=== PATIENT | female | born 1980 | race Caucasian/White ===

== ENCOUNTER 2019-10-09 17:13 | Emergency (ER) | payer BC ==
--- OUTSIDE RECORDS SUMMARY | 2019-10-09 17:14 | XMS REPORT ---
:1980 Author Organization eClinicalWorks Care Team Providers Name Role Phone [facility] Provider Role Unavailable Allergies, Adverse Reactions, Alerts Substance Reaction Event Type N.K.D.A. Info Not Available Non Drug Allergy Problems Problem Type Condition Code Onset Dates Condition Statu s Assessment GERD without esophagitis K21.9 Act jak Assessment Panic disorder [episodic paroxysmal F41.0 Active anxiety] Assessment Generalized anxiety disorder F41.1 Active Assessment Endometriosis N80.9 Active Assessment Elevated BP without diagnosis of R03.0 Active hypertension Problem Endometriosis N80.9 Active Problem Panic disorder [episodic paroxysmal F41.0 Active anxiety] Problem Generalized anxiety disorder F41.1 Active Assessment Current moderate episode of major F32.1 Active depressive disorder without prior episode Problem GERD without esophagitis K21.9 Act jak Problem Current moderate episode of major F32.1 Active depressive disorder without prior episode Medications Medication Code Code Instructions Start End Status Dosage System Date Date Celexa ND 53363562602 40 MG Orally Jul 01, Active 1 table t Once a day 2019 HydrOXYzine HCl ND 96838857311 25 MG Orally Jul 01, Active 1 tablet every 8 hrs PRN 2019 as neede d Anxiety ND 64995759570 1-20 MG-MCG(24) Active 1 tablet Orally Once a day Nexium ND 02366869902 20 MG Orally Active 1 capsu le Once a day Results No Known Results Summary Purpose eClinicalWorks Submission
--- OUTSIDE RECORDS SUMMARY | 2019-10-09 17:15 | XMS REPORT ---
:1980 Author Organization eClinicalWorks Care Team Providers Name Role Phone Cabrera Valera Provider Role Unavailable Allergies No Known Allergies Problems Problem Type Condition Code Onset Dates Condition Statu s Problem Endometriosis N80.9 Active Problem Panic disorder [episodic paroxysmal F41.0 Active anxiety] Problem Generalized anxiety disorder F41.1 Active Problem GERD without esophagitis K21.9 Act jak Problem Current moderate episode of major F32.1 Active depressive disorder without prior episode Medications No Known Medications Results No Known Results Summary Purpose eClinicalWorks Submission
--- OUTSIDE RECORDS SUMMARY | 2019-10-09 17:15 | XMS REPORT ---
:1980 Author Organization eClinicalWorks Care Team Providers Name Role Phone Cabrera Valera Provider Role Unavailable Allergies, Adverse Reactions, Alerts Substance Reaction Event Type N.K.D.A. Info Not Available Non Drug Allergy Problems Problem Type Condition Code Onset Dates Condition Statu s Assessment Generalized anxiety disorder F41.1 Active Assessment Current moderate episode of major F32.1 Active depressive disorder without prior episode Assessment Panic disorder [episodic paroxysmal F41.0 Active anxiety] Assessment H/O: hysterectomy Z90.710 Active Assessment Endometriosis N80.9 Active Assessment Elevated BP without diagnosis of R03.0 Active hypertension Assessment GERD without esophagitis K21.9 Act jak Problem Panic disorder [episodic paroxysmal F41.0 Active anxiety] Problem GERD without esophagitis K21.9 Act jak Problem H/O: hysterectomy Z90.710 Active Problem Endometriosis N80.9 Active Problem Current moderate episode of major F32.1 Active depressive disorder without prior episode Problem Generalized anxiety disorder F41.1 Active Medications Medication Code Code Instructions Start End Status Dosage System Date Date Nexium [facility] 65463386229 20 MG Orally Active 1 capsu le Once a day [facility] 06396442347 1-20 MG-MCG(24) Active 1 tablet Orally Once a day HydrOXYzine HCl [facility] 16536408724 25 MG Orally Inactiv e 1 tablet every 8 hrs PRN as neede d Anxiety Celexa [facility] 57170523133 40 MG Orally Active 1 table t Once a day Alprazolam ND 34984627549 0.25 MG Orally August Active 1 tablet Once a day PRN 2019 SEVERE ANXIETY Results No Known Results Summary Purpose eClinicalWorks Submission
--- OUTSIDE RECORDS SUMMARY | 2019-10-09 17:15 | XMS REPORT ---
[...] anxiety disorder F41.1 Active Medications Medication Code System Code Instructions Start End Date Status Dos age Date Celexa [facility] 42021246375 40 MG Orally Active 1 table t Once a day Alprazolam [facility] 22848467918 0.25 MG Orally Active 1 tablet Once a day PRN SEVERE ANXIETY [facility] 95353489017 1-20 MG-MCG(24) Active 1 tablet Orally Once a day Nexium [facility] 63346688437 20 MG Orally Active 1 capsu le Once a day Results No Known Results Summary Purpose eClinicalWorks Submission
--- OUTSIDE RECORDS SUMMARY | 2019-10-09 17:15 | XMS REPORT | Summary of Care ---
:1980 Author Organization [facility] Address [address] [place] [address] Care Team Providers Name Role Phone Lori Suero MD Primary Care Provider Reason for Visit Reason Comments Medical Records Encounter Details Date Type Department Care Team Description 07/03/2019 Telephone [facility] Family Kamilah Suero MD Medical Records Medicine - [address] [place] [address] [place] [address] [phone] Allergies No Known Allergiesdocumented as of this encounter (statuses as of 07/03/2019) Medications Medication Sig Dispensed Refills Start Date End Date Status esomeprazole 20 mg Take 20 mg by 0 Active capsule mouth daily before a meal. Norethindrn A-E Take by mouth. 0 Active Estradiol-Iron () 1 mg-20 mcg (24)/75 mg (4) per tablet SERTraline 25 mg Take 1 tablet by 30 tablet 5 04/12/2019 Active tabletIndications: mouth daily. Anxiety STOP CITALOPRAM. triamcinolone 0.025 % Apply to 15 g 0 04/12/2019 Active creamIndications: area(s) 2 (two) Perioral dermatitis times daily. documented as of this encounter (statuses as of 07/03/2019) Active Problems Problem Noted Date Perioral dermatitis 04/28/2019 Elevated blood pressure reading without diagnosis of h ypertension 04/28/2019 Multiple thyroid nodules 03/04/2019 Chronic fatigue 03/03/2019 GERD (gastroesophageal reflux disease) 03/03/2019 B12 deficiency 02/25/2019 Overview: Relative deficiency <400 Anxiety 02/21/2019 documented as of this encounter (statuses as of 07/03/2019) Immunizations Name Administration Dates Next Due Tdap 01/27/2017 documented as of this encounter Social History Tobacco Use Types Packs/Day Years Used Date Never Smoker Smokeless Tobacco: Never Used Alcohol Use Drinks/Week oz/Week Comments Yes social Sex Assigned at Date Recorded Not on file Job Start Date Occupation Industry Not on file Not on file Not on file Travel History Travel Start Travel End No recent travel history available. documented as of this encounter Last Filed Vital Signs Not on filedocumented in this encounter Plan of Treatment Health Maintenance Due Date Last Done Comments INFLUENZA VACCINE (#1) 2020 Postponed from 01/27/2019 (Refu sed) PAP SMEAR 01/27/2022 01/27/2019, 03/25/2008 DTaP,Tdap,and Td Vaccines (2 01/27/2027 01/27/2017 - Td) PNEUMOCOCCAL 0-64 YEARS Aged Out No longe r eligible based COMBINED SERIES on patient's age to complete this to pic VARICELLA VACCINES Discontinued documented as of this encounter Results Not on filedocumented in this encounter Insurance Payer Benefit Plan Subscriber ID Effective Dates Phone Address Type / Group [facility] [id number] 2018-[place]ell [phone] [address] P[place]/POS [place] - OUT OF nt [id number] [place] [address] documented as of this encounter
[2019-10-09 18:06] LABS: Absolute Lymphocytes (CBC) 2.1 K/uL (0.7-4.9); Basophils % 0.7 % (0-1.3); Hematocrit 35.7 % (36.0-45.0); MPV 8.2 fL (7.6-11.3); RBC Red Blood Cell Count 3.96 M/uL (3.86-4.86)
[2019-10-09 18:26] LABS: Potassium 3.5 mmol/L (3.5-5.1)
[2019-10-09] MEDS ORDERED: NA CHLORIDE 0.9% 0 ML ONE (18:44)
[2019-10-09] MEDS ORDERED: NA CHLORIDE 0.9% 1,000 ML ONE ×2 (18:46→19:57)
[2019-10-09 18:49] LABS: Urine Blood NEGATIVE (NEG); Urine Glucose NEGATIVE (NEG); Urine Protein NEGATIVE (NEG); Urine Specific Gravity >1.030 (1.005-1.030)
[2019-10-09 18:49] LABS: Urine Bacteria 20-50 /HPF (<20); Urine Culture Reflex Order REFLEXED; Urine RBC <5 /HPF (NONE SEEN)
[2019-10-09] MEDS ORDERED: CEFTRIAXONE/SWI 1gm 1 GM/10 ML SYR ONE (19:04)
[2019-10-09] MEDS ORDERED: ACETAMINOPHEN 500 MG TAB ONE (19:57)
--- NOTE | 2019-10-09 21:18 | EDPHYS ---
Physician Documentation [facility] Name: Brii Yo Age: 39 yrs Sex: Female : 1980 Arrival Date: 10/09/2019 Time: 17:19 Bed 16 Private MD: ED Physician Radha Mancera HPI: 10/08 17:54 This 39 yrs old Female presents to ER via Ambulatory with complaints of snw dehydration. 17:54 Onset: The symptoms/episode began/occurred suddenly, 3 day(s) ago, and became snw persistent. Associated signs and symptoms: Pertinent positives: severe muscle pain, soreness. Modifying factors: The patient symptoms are alleviated by nothing. The patient has not experienced similar symptoms in the past. It is unknown whether or not the patient has recently seen a physician. Worked out really hard after not working out for a while. 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 - Social history:: Smoking status: Patient denies any tobacco usage or history of. ROS: 17:52 Constitutional: Negative for fever, chills, and weight loss, Eyes: Negative for injury, snw pain, redness, and discharge, ENT: Negative for injury, pain, and discharge, Neck: Negative for injury, pain, and swelling, Cardiovascular: Negative for chest pain, palpitations, and edema, Respiratory: Negative for shortness of breath, cough, wheezing, and pleuritic chest pain, Abdomen/GI: Negative for abdominal pain, nausea, vomiting, diarrhea, and constipation, Back: Negative for injury and pain, : Negative for injury, bleeding, discharge, and swelling, Skin: Negative for injury, rash, and discoloration, Neuro: Negative for headache, weakness, numbness, tingling, and seizure, Psych: Negative for depression, anxiety, suicide ideation, homicidal ideation, and hallucinations. 17:52 MS/extremity: Positive for excessive workout. Exam: 17:51 Constitutional: This is a well developed, well nourished patient who is awake, alert, snw and in no acute distress. Head/Face: Normocephalic, atraumatic. Eyes: Pupils equal round and reactive to light, extra-ocular motions intact. Lids and lashes normal. Conjunctiva and sclera are non-icteric and not injected. Cornea within normal limits. Periorbital areas with no swelling, redness, or edema. ENT: Nares patent. No nasal discharge, no septal abnormalities noted. Tympanic membranes are normal and external auditory canals are clear. Oropharynx with no redness, swelling, or masses, exudates, or evidence of obstruction, uvula midline. Mucous membranes moist. Neck: Trachea midline, no thyromegaly or masses palpated, and no cervical lymphadenopathy. Supple, full range of motion without nuchal rigidity, or vertebral point tenderness. No Meningismus. Chest/axilla: Normal chest wall appearance and motion. Nontender with no deformity. No lesions are appreciated. Cardiovascular: Regular rate and rhythm with a normal S1 and S2. No gallops, murmurs, or rubs. Normal PMI, no JVD. No pulse deficits. Respiratory: Lungs have equal breath sounds bilaterally, clear to auscultation and percussion. No rales, rhonchi or wheezes noted. No increased work of breathing, no retractions or nasal flaring. Abdomen/GI: Soft, non-tender, with normal bowel sounds. No distension or tympany. No guarding or rebound. No evidence of tenderness throughout. Back: No spinal tenderness. No costovertebral tenderness. Full range of motion. Skin: Warm, dry with normal turgor. Normal color with no rashes, no lesions, and no evidence of cellulitis. Neuro: Awake and alert, GCS 15, oriented to person, place, time, and situation. Cranial nerves II-XII grossly intact. Motor strength 5/5 in all extremities. Sensory grossly intact. Cerebellar exam normal. Normal gait. Psych: Awake, alert, with orientation to person, place and time. Behavior, mood, and affect are within normal limits. 17:51 Musculoskeletal/extremity: Extremities: severe tenderness with movement, unable to bear weight in squat., Circulation is intact in all extremities. Sensation intact. Vital Signs: 17:26 BP 150 / 103; Pulse 59; Resp 18; Temp 98.7; Pulse Ox 99% on R/A; Weight 90.72 kg; em Height 5 ft. 9 in. (175.26 cm); Pain 6/10; 18:00 BP 134 / 80; Pulse 52; Resp 18; Pulse Ox 100% on R/A; vc 19:00 BP 142 / 98; Pulse 62; Resp 17; Pulse Ox 98% on R/A; vc 20:00 BP 132 / 92; Pulse 44; Resp 17; Pulse Ox 98% on R/A; vc 21:00 BP 135 / 84; Pulse 49; Resp 18; Pulse Ox 100% on R/A; vc 17:26 Body Mass Index 29.53 (90.72 kg, 175.26 cm) em MDM: 17:33 Patient medically screened. snw 21:18 Data reviewed: vital signs, nurses notes. Data interpreted: Pulse oximetry: on room air snw is 99 %. Interpretation: normal. Counseling: I had a detailed discussion with the patient and/or guardian regarding: the historical points, exam findings, and any diagnostic results supporting the discharge/admit diagnosis, lab results, the need for outpatient follow up, to return to the emergency department if symptoms worsen or persist or if there are any questions or concerns that arise at home. Special discussion: I have referred the patient to see his PCP for further evaluation of high blood pressure. Based on the history and exam findings, there is no indication for further emergent testing or inpatient evaluation. I discussed with the patient/guardian the need to see the primary care provider for further evaluation of the symptoms. 10/08 17:39 Order name: CBC with Diff; Complete Time: 18:23 snw 10/08 17:39 Order name: Chem 7; Complete Time: 18:44 snw 10/08 17:39 Order name: CPK; Complete Time: 18:44 snw 10/08 17:39 Order name: Urine Microscopic Only; Complete Time: 18:52 snw 10/08 18:10 Order name: Urine Dipstick--Ancillary (enter results) bd 10/08 18:10 Order name: Urine --Ancillary (enter results) bd 10/08 17:39 Order name: Urine Test (obtain specimen); Complete Time: 18:09 snw 10/08 18:10 Order name: Urine Dipstick-Ancillary; Complete Time: 18:52 [facility] 10/08 18:10 Order name: Urine --Ancillary; Complete Time: 18:52 [facility] 10/08 18:50 Order name: Urine Culture [facility] 10/08 17:39 Order name: Urine Dipstick-Ancillary (obtain specimen); Complete Time: 18:09 snw Administered Medications: 18:43 Drug: NS 0.9% 1000 ml Route: IV; Rate: 1 bolus; Site: left antecubital; ah 10/09 02:44 Follow up: IV Status: Completed infusion; IV Intake: 1000ml vc 10/08 19:00 Drug: Rocephin 1 grams Route: IV; Rate: calculated rate; Site: left antecubital; em 19:05 Follow up: IV Status: Completed infusion; IV Intake: 10ml vc 20:14 Drug: NS 0.9% 1000 ml Route: IV; Rate: 1 bolus; Site: left antecubital; vc 21:19 Follow up: IV Status: Completed infusion; IV Intake: 1000ml vc 20:17 Drug: Tylenol 1000 mg Route: PO; vc 21:20 Follow up: Response: No adverse reaction vc Point of Care Testing: Urine : 18:08 hCG Reading: Negative; Control Reading: Positive; jp3 Disposition: 10/09/19 21:17 Discharged to Home. Impression: Urinary tract infection, site not specified, Rhabdomyolysis. - Condition is Stable. - Discharge Instructions: Hypertension, Rhabdomyolysis, Urinary Tract Infection, Adult, Rehydration, Adult. - Prescriptions for Augmentin 875- 125 mg Oral Tablet - take 1 tablet by ORAL route every 12 hours for 10 days; 20 tablet. promethazine 25 mg Oral Tablet - take 1 tablet by ORAL route every 6 hours As needed; 20 tablet. - Medication Reconciliation Form, Thank You Letter, Antibiotic Education, Prescription Opioid Use form. - Follow up: Emergency Department; When: As needed; Reason: Worsening of condition. Follow up: Private Physician; When: 2 - 3 days; Reason: Recheck today's complaints, Continuance of care, Re-evaluation by your physician. Addendum: 10/11/2019 18:19 Co-signature as Attending Physician, Radha Mancera MD. m a2 Signatures: Dispatcher [employer] [facility] Ghislaine Stevens, MARIAA PENCIL INSPECTOR-Csnw Hayden Santa RN RN Radha Palm MD MD ma2 Jenniffer Mulligan RN RN vc Harris, Amy RN RN Corrections: (The following items were deleted from the chart) 10/08 21:32 21:17 10/09/2019 21:17 Discharged to Home. Impression: Urinary tract infection, site vc not specified; Rhabdomyolysis. Condition is Stable. Discharge Instructions: Hypertension, Rhabdomyolysis, Urinary Tract Infection, Adult, Rehydration, Adult. Prescriptions for Augmentin 875-125 mg Oral Tablet - take 1 tablet by ORAL route every 12 hours for 10 days; 20 tablet, promethazine 25 mg Oral Tablet - take 1 tablet by ORAL route every 6 hours As needed; 20 tablet. and Forms are Medication Reconciliation Form, Thank You Letter, Antibiotic Education, Prescription Opioid Use. Follow up: Emergency Department; When: As needed; Reason: Worsening of condition. Follow up: Private Physician; When: 2 - 3 days; Reason: Recheck today's complaints, Continuance of care, Re-evaluation by your physician. snw
--- NOTE | 2019-10-09 21:18 | ER ---
Nurse's Notes [facility] Name: Brii Yo Age: 39 yrs Sex: Female : 1980 Arrival Date: 10/09/2019 Time: 17:19 Bed 16 Private MD: Diagnosis: Urinary tract infection, site not specified;Rhabdomyolysis Presentation: 10/08 17:26 Chief complaint: Patient states: worked out for the first time in a while, reports em being sore from it, also reports dehydration and dark urine, had nausea this morning, has drank some water and gatorade, wants to get checked out for rhabdo. Coronavirus screen: Proceed with normal triage. Patient denies a cough. Patient denies shortness of breath or difficulty breathing. Patient denies measured and/or subjective temperature greater than 100.4F prior to today's visit. Patient denies travel on a cruise ship or to a country the [facility] currently lists as an affected area. Patient denies contact with known and/or suspected case of COVID-19. Ebola Screen: Patient negative for fever greater than or equal to 101.5 degrees Fahrenheit, and additional compatible Ebola Virus Disease symptoms Patient denies exposure to infectious person. Patient denies travel to an Ebola-affected area in the 21 days before illness onset. No symptoms or risks identified at this time. Initial Sepsis Screen: Does the patient meet any 2 criteria? No. Patient's initial sepsis screen is negative. Does the patient have a suspected source of infection? No. Patient's initial sepsis screen is negative. Risk Assessment: Do you want to hurt yourself or someone else? Patient reports no desire to harm self or others. Onset of symptoms was October 09, 2019. 17:26 Method Of Arrival: Ambulatory em 17:26 Acuity: CLARIBEL 3 em Triage Assessment: 18:00 General: Appears in no apparent distress. Behavior is calm, cooperative. Pain: vc Complains of pain in right leg and left leg. HUC: 17:32 LMP N/A - Hysterectomy em Historical: - Allergies: 17:32 No Known Allergies; em - Home Meds: 17:32 Xanax Oral [Active]; Nexium Oral [Active]; em - PMHx: 17:32 GERD; Anxiety; em - PSHx: 17:32 Hysterectomy; gastric sleeve; breast augmentation; abd sx; em - Immunization history:: Adult Immunizations up to date. - Social history:: Smoking status: Patient denies any tobacco usage or history of. Screenin:00 Abuse screen: Denies threats or abuse. Nutritional screening: No deficits noted. vc Tuberculosis screening: No symptoms or risk factors identified. Fall Risk None identified. Assessment: 18:00 General: Appears in no apparent distress. uncomfortable, ill, Behavior is calm, vc cooperative, appropriate for age. Pain: Complains of pain in Generalized pain. Neuro: Level of Consciousness is awake, alert, obeys commands, Oriented to person, place, time, situation. Cardiovascular: Capillary refill < 3 seconds Patient's skin is warm and dry. Respiratory: Airway is patent Respiratory effort is even, unlabored, Respiratory pattern is regular, symmetrical. GI: No signs and/or symptoms were reported involving the gastrointestinal system. : No signs and/or symptoms were reported regarding the genitourinary system. EENT: No signs and/or symptoms were reported regarding the EENT system. Derm: No signs and/or symptoms reported regarding the dermatologic system. Musculoskeletal: Circulation, motion, and sensation intact. Range of motion: intact in all extremities. 19:00 Reassessment: Patient appears in no apparent distress at this time. Patient and/or vc family updated on plan of care and expected duration. Pain level reassessed. Patient is alert, oriented x 3, equal unlabored respirations, skin warm/dry/pink. 20:00 Reassessment: Patient appears in no apparent distress at this time. Patient and/or vc family updated on plan of care and expected duration. Pain level reassessed. Patient is alert, oriented x 3, equal unlabored respirations, skin warm/dry/pink. 21:00 Reassessment: Patient appears in no apparent distress at this time. Patient and/or vc family updated on plan of care and expected duration. Pain level reassessed. Patient is alert, oriented x 3, equal unlabored respirations, skin warm/dry/pink. Patient states symptoms have improved. Vital Signs: 17:26 BP 150 / 103; Pulse 59; Resp 18; Temp 98.7; Pulse Ox 99% on R/A; Weight 90.72 kg; em Height 5 ft. 9 in. (175.26 cm); Pain 6/10; 18:00 BP 134 / 80; Pulse 52; Resp 18; Pulse Ox 100% on R/A; vc 19:00 BP 142 / 98; Pulse 62; Resp 17; Pulse Ox 98% on R/A; vc 20:00 BP 132 / 92; Pulse 44; Resp 17; Pulse Ox 98% on R/A; vc 21:00 BP 135 / 84; Pulse 49; Resp 18; Pulse Ox 100% on R/A; vc 17:26 Body Mass Index 29.53 (90.72 kg, 175.26 cm) em ED Course: 17:19 Patient arrived in ED. am2 17:25 Ghislaine Stevens [facility]-C [facility]. snw 17:25 Radha Mancera MD is Attending Physician. snw 17:30 Triage completed. em 17:32 Arm band placed on. em 17:46 Jenniffer Mulligan, CINTHIA is Primary Nurse. vc 17:55 Bed in low position. Call light in reach. Side rails up X 1. Verbal reassurance given. jp3 Pulse ox on. NIBP on. 17:55 Initial lab(s) drawn, by me, sent to lab. Inserted saline lock: 20 gauge in left jp3 antecubital area, using aseptic technique. Blood collected. Patient maintains SpO2 saturation greater than 95% on room air. 18:08 Urine collected: clean catch specimen, clear, beatris colored. jp3 19:25 Urine --Ancillary (enter results) Sent. jp3 19:25 Urine Dipstick--Ancillary (enter results) Sent. jp3 21:28 Removal of peripheral IV. Catheter intact, dressing applied. jp3 21:30 No provider procedures requiring assistance completed. IV discontinued, intact, vc bleeding controlled, No redness/swelling at site. Pressure dressing applied. Administered Medications: 18:43 Drug: NS 0.9% 1000 ml Route: IV; Rate: 1 bolus; Site: left antecubital; 10/09 02:44 Follow up: IV Status: Completed infusion; IV Intake: 1000ml vc 10/08 19:00 Drug: Rocephin 1 grams Route: IV; Rate: calculated rate; Site: left antecubital; 19:05 Follow up: IV Status: Completed infusion; IV Intake: 10ml vc 20:14 Drug: NS 0.9% 1000 ml Route: IV; Rate: 1 bolus; Site: left antecubital; vc 21:19 Follow up: IV Status: Completed infusion; IV Intake: 1000ml vc 20:17 Drug: Tylenol 1000 mg Route: PO; vc 21:20 Follow up: Response: No adverse reaction vc Point of Care Testing: Urine : 18:08 hCG Reading: Negative; Control Reading: Positive; jp3 Intake: 19:05 IV: 10ml; Total: 10ml. vc 21:19 IV: 1000ml; Total: 1010ml. vc 10/09 02:44 IV: 1000ml; Total: 2010ml. vc Outcome: 10/08 21:17 Discharge ordered by MD. villareal 21:30 Discharged to home ambulatory. vc 21:30 Condition: improved 21:30 Discharge instructions given to patient, Instructed on discharge instructions, follow up and referral plans. medication usage, Demonstrated understanding of instructions, follow-up care, medications, Prescriptions given X 2. 21:32 Patient left the ED. vc Signatures: Ghislaine Stevens, RAW MATERIAL PLANNER-C RAW MATERIAL PLANNER-Csnw Hayden Santa, Carin Dumas RN, Jacob jp3 Jenniffer Mulligan RN RN vc Harris, Amy, RN RN
[2019-10-09 21:36] VITALS: TEMP 98.7
[2019-10-09 21:41] VITALS: BP 135/84; O2SAT 100
== END 2019-10-09 21:32 | disposition home or self-care (01) ==
LOC: ER 17:13
DX: M62.82 Rhabdomyolysis (principal); N39.0 Urinary tract infection, site not specified; F41.9 Anxiety disorder, unspecified; Z98.82 Breast implant status
CPT/HCPCS: 96361; 87088; 85025; 87086; 80048; 36415; 82550; 81025; 96374; 99284; J0696; J7030 ×2; 81003; 81015

== ENCOUNTER 2020-10-03 08:50 | Emergency (ER) | payer BC ==
[2020-10-03] MEDS ORDERED: ONDANSETRON 4 MG/2 ML VIAL ONE (09:26)
[2020-10-03] MEDS ORDERED: NA CHLORIDE 0.9% 1,000 ML ONE (09:26)
[2020-10-03] MEDS ORDERED: MORPHINE 4 MG/ML SYR ONE (09:26)
[2020-10-03] MEDS ORDERED: PIPER/TAZO/NS 3.375gm 3.375 GM/100 ML BAG ONE (09:26)
[2020-10-03 09:28] LABS: Absolute Lymphocytes (CBC) 1.2 K/uL (0.7-4.9); Basophils % 0.5 % (0-1.3); Hematocrit 37.1 % (36.0-45.0); Lymphocytes % 15.1 % (15.3-44.8); MPV 7.9 fL (7.6-11.3); RBC Red Blood Cell Count 4.14 M/uL (3.86-4.86)
[2020-10-03] MEDS ORDERED: MORPHINE 2 MG/ML SYR ONE (09:29)
[2020-10-03 09:37] LABS: ALT/SGPT 23 U/L (12-78); AST/SGOT 18 U/L (15-37); Albumin 3.5 g/dL (3.4-5.0); Alkaline Phosphatase 83 U/L (45-117); BUN Blood Urea Nitrogen 12 mg/dL (7-18); Bicarbonate 28 mmol/L (21-32); Bilirubin Direct 0.1 mg/dL (0-0.2); Bilirubin Total 0.3 mg/dL (0.2-1.0); Glucose Level 93 mg/dL (74-106); Potassium 3.7 mmol/L (3.5-5.1); Protein, Total 7.5 g/dL (6.4-8.2); Sodium Level 138 mmol/L (136-145)
[2020-10-03 09:38] LABS: Lipase 82 U/L (73-393)
--- NOTE | 2020-10-03 09:53 | RAD REPORT ---
EXAM DESCRIPTION: RAD - Chest Single View - 10/03/2020 9:21 am CLINICAL HISTORY: ABDOMINAL DISTENTION Chest pain. COMPARISON: No comparisons FINDINGS: Portable technique limits examination quality. The lungs are grossly clear. The heart is normal in size. No displaced fractures. IMPRESSION: No acute intrathoracic process suspected.
--- NOTE | 2020-10-03 09:56 | RAD REPORT ---
EXAM DESCRIPTION: CTAbdomen Pelvis W Contrast - 10/03/2020 9:37 am CLINICAL HISTORY: Abdominal pain. ABD PAIN COMPARISON: No comparisons TECHNIQUE: Biphasic CT imaging of the abdomen and pelvis was performed with 100 ml non-ionic IV cont rast. All CT scans are performed using dose optimization technique as appropriate and may include automated exposure control or mA/KV adjustment according to patient size. FINDINGS: The lung bases are clear.Postsurgical changes are present about the stomach. The liver, spleen, pancreas, adrenal glands and kidneys are within normal limits. No bowel obstruction, free air, abdominal free fluid or abscess. Sigmoid diverticulosis is present. T race pelvic free fluid. The appendix is normal. No evidence of significant lymphadenopathy. No suspicious bony findings. IMPRESSION: Mild sigmoid diverticulosis present with trace pelvic. No acute diverticulitis findings.
--- NOTE | 2020-10-03 10:23 | ER ---
Nurse's Notes [facility] Name: Brii Yo Age: 40 yrs Sex: Female : 1980 Arrival Date: 10/03/2020 Time: 08:53 Bed 6 Private MD: Diagnosis: Diverticular disease of intestine;Diverticulosis of large intestine without perforation or abscess without bleeding;Abdominal tenderness Presentation: 10/03 09:04 Chief complaint: Patient states: lower abd pain described as sharp, shooting with ss tenderness that began yesterday evening. Coronavirus screen: Client denies travel out of the [place] in the last 14 days. Ebola Screen: Patient denies exposure to infectious person. Patient denies travel to an Ebola-affected area in the 21 days before illness onset. Initial Sepsis Screen: Does the patient meet any 2 criteria? No. Patient's initial sepsis screen is negative. Does the patient have a suspected source of infection? No. Patient's initial sepsis screen is negative. Risk Assessment: Do you want to hurt yourself or someone else? Patient reports no desire to harm self or others. Onset of symptoms was October 02, 2020. 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 - Social history:: Smoking status: Patient denies any tobacco usage or history of. - Family history:: not pertinent. Screenin:03 Abuse screen: Denies threats or abuse. Denies injuries from another. Nutritional sv screening: No deficits noted. Tuberculosis screening: No symptoms or risk factors identified. Fall Risk None identified. Assessment: 09:20 General: Appears in no apparent distress. uncomfortable, well groomed, well developed, sv well nourished, Behavior is calm, cooperative, appropriate for age. Pain: Complains of pain in left lower quadrant and right lower quadrant Pain currently is 7 out of 10 on a pain scale. Pain began this morning Is continuous. Neuro: Level of Consciousness is awake, alert, obeys commands, Oriented to person, place, time, situation, Moves all extremities. Full function Gait is steady. Cardiovascular: Patient's skin is warm and dry. Respiratory: Airway is patent Respiratory effort is even, unlabored, Respiratory pattern is regular, symmetrical. GI: Abdomen is flat, Abd is soft X 4 quads Abdomen is tender to palpation in right lower quadrant and left lower quadrant. Derm: Skin is intact, Skin is pink, warm \T\ dry. Musculoskeletal: Range of motion: intact in all extremities. 10:30 Reassessment: Patient appears in no apparent distress at this time. Patient and/or sv family updated on plan of care and expected duration. Pain level reassessed. Patient is alert, oriented x 3, equal unlabored respirations, skin warm/dry/pink. 11:11 Reassessment: Patient appears in no apparent distress at this time. Patient and/or sv family updated on plan of care and expected duration. Pain level reassessed. Patient is alert, oriented x 3, equal unlabored respirations, skin warm/dry/pink. Vital Signs: 09:04 BP 139 / 93; Pulse 80; Resp 16; Temp 97.1(TE); Pulse Ox 99% on R/A; Weight 90.72 kg; ss Height 5 ft. 9 in. (175.26 cm); Pain 7/10; 09:45 BP 115 / 83; Pulse 63; Resp 16; Pulse Ox 99% ; sv 11:00 BP 120 / 77; Pulse 66; Resp 16; Pulse Ox 99% ; sv 09:04 Body Mass Index 29.53 (90.72 kg, 175.26 cm) ED Course: 08:53 Patient arrived in ED. ds1 08:56 Frederick Singleton MD is Attending Physician. ash 09:02 Makenna De Santiago RN is Primary Nurse. sv 09:03 Arm band placed on Patient placed in an exam room, on a stretcher. sv 09:03 Patient has correct armband on for positive identification. Placed in gown. Bed in low sv position. Call light in reach. Pulse ox on. NIBP on. Door closed. Warm blanket given. Head of bed elevated. 09:05 Triage completed. ss 09:20 Inserted saline lock: 20 gauge in right antecubital area, using aseptic technique. sv Blood collected. Flushed right antecubital with 5 ml normal saline. 09:21 Chest Single View XRAY In Process Unspecified. EDMS 09:37 CT Abd/Pelvis - IV Contrast Only In Process Unspecified. EDMS 10:23 Reggie Peng MD is Referral Physician. ash 11:14 No provider procedures requiring assistance completed. IV discontinued, intact, sv bleeding controlled, No redness/swelling at site. Pressure dressing applied. Administered Medications: 09:20 Drug: Zofran (Ondansetron) 4 mg Route: IVP; Site: right antecubital; sv 10:42 Follow up: Response: No adverse reaction sv 09:20 Drug: NS 0.9% 1000 ml Route: IV; Rate: 1 bolus; Site: right antecubital; sv 11:00 Follow up: Response: No adverse reaction; IV Status: Completed infusion; IV Intake: sv 1000ml 09:22 Drug: morphine 2 mg {Note: rass1.} Route: IVP; Site: right antecubital; sv 10:42 Follow up: Response: No adverse reaction; Pain is decreased; RASS: Alert and Calm (0) sv 09:45 Drug: Zosyn (piperacillin-tazobactam) 3.375 grams Route: IVPB; Infused Over: 60 mins; sv Site: right antecubital; 11:00 Follow up: Response: No adverse reaction; IV Status: Completed infusion; IV Intake: sv 100ml 10:30 Drug: TORadol (ketorolac) 30 mg Route: IVP; Site: right antecubital; sv 11:00 Follow up: Response: No adverse reaction sv Intake: 11:00 IV: 100ml; Total: 100ml. sv 11:00 IV: 1000ml; Total: 1100ml. sv Outcome: 10:23 Discharge ordered by . ash 11:14 Patient left the ED. sv 11:14 Discharged to home ambulatory. sv 11:14 Condition: stable 11:14 Discharge instructions given to patient, Instructed on discharge instructions, follow up and referral plans. medication usage, Demonstrated understanding of instructions, follow-up care, medications, Prescriptions given X 4. Signatures: Dispatcher [employer] Makenna Capellan, Frederick Aden RN, MD MD cha Sanford, Demi dsAle Juarez, CINTHIA VICENTE ss
--- NOTE | 2020-10-03 10:23 | EDPHYS ---
Physician Documentation [facility] Name: Brii Yo Age: 40 yrs Sex: Female : 1980 Arrival Date: 10/03/2020 Time: 08:53 Bed 6 Private MD: MAXIMO Physician Frederick Singleton HPI: 10/03 09:20 This 40 yrs old Female presents to ER via Ambulatory with complaints of ash Abdominal Pain. 09:20 The patient presents with abdominal pain in the lower abdomen. Onset: The ash symptoms/episode began/occurred 1 day(s) ago. The symptoms do not radiate. Associated signs and symptoms: Pertinent positives: nausea. The symptoms are described as crampy. Modifying factors: The symptoms are alleviated by remaining still, the symptoms are aggravated by movement, pressure, touching the area. Severity of pain: At its worst the pain was moderate in the emergency department the pain is unchanged. The patient has not experienced similar symptoms in the past. 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 - Social history:: Smoking status: Patient denies any tobacco usage or history of. - Family history:: not pertinent. ROS: 09:20 Constitutional: Negative for fever, chills, and weight loss, Eyes: Negative for injury, ash pain, redness, and discharge, ENT: Negative for injury, pain, and discharge, Neck: Negative for injury, pain, and swelling, Cardiovascular: Negative for chest pain, palpitations, and edema, Respiratory: Negative for shortness of breath, cough, wheezing, and pleuritic chest pain, Back: Negative for injury and pain, : Negative for injury, bleeding, discharge, and swelling, MS/Extremity: Negative for injury and deformity, Skin: Negative for injury, rash, and discoloration, Neuro: Negative for headache, weakness, numbness, tingling, and seizure, Psych: Negative for depression, anxiety, suicide ideation, homicidal ideation, and hallucinations, Allergy/Immunology: Negative for hives, rash, and allergies, Endocrine: Negative for neck swelling, polydipsia, polyuria, polyphagia, and marked weight changes, Hematologic/Lymphatic: Negative for swollen nodes, abnormal bleeding, and unusual bruising. 09:20 Abdomen/GI: Positive for abdominal pain, of the right lower quadrant and left lower quadrant. Exam: 09:20 Constitutional: This is a well developed, well nourished patient who is awake, alert, ash and in no acute distress. Head/Face: Normocephalic, atraumatic. Eyes: Pupils equal round and reactive to light, extra-ocular motions intact. Lids and lashes normal. Conjunctiva and sclera are non-icteric and not injected. Cornea within normal limits. Periorbital areas with no swelling, redness, or edema. ENT: Nares patent. No nasal discharge, no septal abnormalities noted. Tympanic membranes are normal and external auditory canals are clear. Oropharynx with no redness, swelling, or masses, exudates, or evidence of obstruction, uvula midline. Mucous membranes moist. Neck: Trachea midline, no thyromegaly or masses palpated, and no cervical lymphadenopathy. Supple, full range of motion without nuchal rigidity, or vertebral point tenderness. No Meningismus. Chest/axilla: Normal chest wall appearance and motion. Nontender with no deformity. No lesions are appreciated. Cardiovascular: Regular rate and rhythm with a normal S1 and S2. No gallops, murmurs, or rubs. Normal PMI, no JVD. No pulse deficits. Respiratory: Lungs have equal breath sounds bilaterally, clear to auscultation and percussion. No rales, rhonchi or wheezes noted. No increased work of breathing, no retractions or nasal flaring. Back: No spinal tenderness. No costovertebral tenderness. Full range of motion. Female : Normal external genitalia. Skin: Warm, dry with normal turgor. Normal color with no rashes, no lesions, and no evidence of cellulitis. MS/ Extremity: Pulses equal, no cyanosis. Neurovascular intact. Full, normal range of motion. Neuro: Awake and alert, GCS 15, oriented to person, place, time, and situation. Cranial nerves II-XII grossly intact. Motor strength 5/5 in all extremities. Sensory grossly intact. Cerebellar exam normal. Normal gait. Psych: Awake, alert, with orientation to person, place and time. Behavior, mood, and affect are within normal limits. 09:20 Abdomen/GI: Inspection: abdomen appears normal, Bowel sounds: normal, Palpation: moderate abdominal tenderness, in the right lower quadrant and left lower quadrant, Liver: no appreciated palpable abnormalities, Hernia: not appreciated. Vital Signs: 09:04 BP 139 / 93; Pulse 80; Resp 16; Temp 97.1(TE); Pulse Ox 99% on R/A; Weight 90.72 kg; ss Height 5 ft. 9 in. (175.26 cm); Pain 7/10; 09:45 BP 115 / 83; Pulse 63; Resp 16; Pulse Ox 99% ; sv 11:00 BP 120 / 77; Pulse 66; Resp 16; Pulse Ox 99% ; sv 09:04 Body Mass Index 29.53 (90.72 kg, 175.26 cm) ss MDM: 08:57 Patient medically screened. sah 09:23 Differential diagnosis: appendicitis, cholecystitis, Cholelithiasis, diverticulitis, ash Irritable bowel syndrome, non-specific abd pain, Ovarian Torsion, pancreatitis, Peptic Ulcer Disease, urinary tract infection. Data reviewed: vital signs, nurses notes, lab test result(s), radiologic studies, CT scan, plain films. Data interpreted: quality assurance monitor: rate is 97 beats/min, rhythm is regular, Pulse oximetry: on room air is 99 %. Test interpretation: by ED physician or midlevel provider: plain radiologic studies. Counseling: I had a detailed discussion with the patient and/or guardian regarding: the historical points, exam findings, and any diagnostic results supporting the discharge/admit diagnosis, lab results, radiology results. 10/03 09:03 Order name: Basic Metabolic Panel; Complete Time: 10:17 ash 10/03 09:03 Order name: CBC with Diff; Complete Time: 10:17 ash 10/03 09:03 Order name: Hepatic Function; Complete Time: 10:17 ash 10/03 09:03 Order name: Lipase; Complete Time: 10:17 ash 10/03 10:31 Order name: CREATININE WHOLE BLOOD EDVT 10/03 09:03 Order name: IV Saline Lock; Complete Time: 09:24 [facility] 10/03 09:03 Order name: CT Abd/Pelvis - IV Contrast Only; Complete Time: 10:17 [facility] 10/03 09:03 Order name: Chest Single View XRAY; Complete Time: 10:17 [facility] 10/03 09:03 Order name: Labs collected and sent; Complete Time: 09:28 [facility] 10/03 09:03 Order name: Urine Dipstick-Ancillary (obtain specimen); Complete Time: 09:24 [facility] Administered Medications: 09:20 Drug: Zofran (Ondansetron) 4 mg Route: IVP; Site: right antecubital; sv 10:42 Follow up: Response: No adverse reaction sv 09:20 Drug: NS 0.9% 1000 ml Route: IV; Rate: 1 bolus; Site: right antecubital; sv 11:00 Follow up: Response: No adverse reaction; IV Status: Completed infusion; IV Intake: sv 1000ml 09:22 Drug: morphine 2 mg {Note: rass1.} Route: IVP; Site: right antecubital; sv 10:42 Follow up: Response: No adverse reaction; Pain is decreased; RASS: Alert and Calm (0) sv 09:45 Drug: Zosyn (piperacillin-tazobactam) 3.375 grams Route: IVPB; Infused Over: 60 mins; sv Site: right antecubital; 11:00 Follow up: Response: No adverse reaction; IV Status: Completed infusion; IV Intake: sv 100ml 10:30 Drug: TORadol (ketorolac) 30 mg Route: IVP; Site: right antecubital; sv 11:00 Follow up: Response: No adverse reaction sv Disposition: 10/03/20 10:23 Discharged to Home. Impression: Diverticular disease of intestine, Diverticulosis of large intestine without perforation or abscess without bleeding, Abdominal tenderness. - Condition is Stable. - Discharge Instructions: High-Fiber Diet, Abdominal Pain, Adult, Diverticulosis, Abdominal Pain, Adult, [id number]. - Prescriptions for Bentyl 20 mg Oral Tablet - take 1 tablet by ORAL route every 6 hours As needed; 20 tablet. Flagyl 500 mg Oral Tablet - take 1 tablet by ORAL route every 8 hours for 7 days; 21 tablet. Ibuprofen 600 mg Oral Tablet - take 1 tablet by ORAL route every 8 hours As needed take with food; 21 tablet. Cipro 500 mg Oral Tablet - take 1 tablet by ORAL route every 12 hours for 7 days; 14 tablet. - Work release form, Medication Reconciliation Form, Thank You Letter, Antibiotic Education, Prescription Opioid Use form. - Follow up: Private Physician; When: 2 - 3 days; Reason: Recheck today's complaints, Continuance of care, Re-evaluation by your physician. Follow up: Reggie Peng MD; When: 2 - 3 days; Reason: Recheck today's complaints, Continuance of care, Re-evaluation by your physician. - Problem is new. - Symptoms have improved. Signatures: Dispatcher [employer] Makenna Capellan RN RN Frederick Sanford MD MD cha Smirch, Shelby, RN RN ss Corrections: (The following items were deleted from the chart) 11:14 10:23 10/03/2020 10:23 Discharged to Home. Impression: Diverticular disease of sv intestine; Diverticulosis of large intestine without perforation or abscess without bleeding; Abdominal tenderness. Condition is Stable. Forms are Work release form, Medication Reconciliation Form, Thank You Letter, Antibiotic Education, Prescription Opioid Use. Follow up: Private Physician; When: 2 - 3 days; Reason: Recheck today's complaints, Continuance of care, Re-evaluation by your physician. Follow up: Reggie Peng; When: 2 - 3 days; Reason: Recheck today's complaints, Continuance of care, Re-evaluation by your physician. Problem is new. Symptoms have improved. ash
[2020-10-03] MEDS ORDERED: KETOROLAC 30 MG/ML INJ ONE (10:48)
[2020-10-03 11:29] VITALS: TEMP 97.1; O2SAT 99
[2020-10-03 11:38] VITALS: BP 115/83
== END 2020-10-03 11:14 | disposition home or self-care (01) ==
LOC: ER 08:50
DX: K57.30 Diverticulosis of large intestine without perforation or abscess without bleeding (principal); R10.819 Abdominal tenderness, unspecified site; F41.9 Anxiety disorder, unspecified; K21.9 Gastro-esophageal reflux disease without esophagitis; F32.9 Major depressive disorder, single episode, unspecified; I10 Essential (primary) hypertension; M54.9 Dorsalgia, unspecified; G89.29 Other chronic pain; Z98.84 Bariatric surgery status
CPT/HCPCS: 85025; 80048; 36415; 82565; 80076; 83690; 74177; 71045; Q9967; J2543; J2270; J7030; J2405; 96365; 96375; 99284

== ENCOUNTER 2020-12-09 09:54 | Day surgery (SDC) | payer BC ==
[2020-12-09] MEDS ORDERED: Ringers Lactate 1,000 ML IV ONE (10:31)
[2020-12-09] MEDS ORDERED: propofoL 200 MG/20 ML VIAL IV ONE (13:41)
[2020-12-09] MEDS ORDERED: LIDOCAINE 1% MPF 5 ML VIAL ONE (13:41)
--- NOTE | 2020-12-09 13:59 | ENDO RPT ---
[address], [address] COLONOSCOPY PROCEDURE REPORT EXAM DATE: 12/09/2020 PATIENT NAME: Brii Yo MR #: [id number] BIRTHDATE: 1980 ATTENDING: Reggie Peng DR STATUS: outpatient LIFE SCIENCES INSTRUCTOR: Melissa Echols CST and Jeanine Munguia RN INDICATIONS: The patient is a 40 yr old Female here for a colonoscopy due to diverticulitis PROCEDURE PERFORMED: Colonoscopy with biopsy MEDICATIONS: Per Anesthesia. ESTIMATED BLOOD LOSS: None CONSENT: The patient understands the risks and benefits of the procedure and understands that these risks include, but are not limited to: sedation, allergic reaction, infection, perforation and/or bleeding. Alternative means of evaluation and treatment include, among others: physical exam, x-rays, and/or surgical intervention. The patient elects to proceed with this endoscopic procedure. DESCRIPTION OF PROCEDURE: During intra-op preparation period all mechanical medical equipment was checked for proper function. Hand hygiene and appropriate measures for infection prevention was taken. Procedure, possible complications, alternatives including, but not limited to possibility of bleeding, perforation, tear, infection, sepsis, need for surgery, need for blood transfusion, were explained to the patient. After the risks, benefits and alternatives of the procedure were thoroughly explained, Informed consent was verified, confirmed and timeout was successfully executed by the treatment team. The patient was placed in the left lateral position. A digital rectal exam was performed and revealed internal hemorrhoids. After appropriate level of anesthesia, the scope was passed. The EC-[id number] ([id number]) endoscope was introduced through the anus and advanced to the cecum, which was identified by both the appendix and ileocecal valve. The quality of the prep was fair. The instrument was then slowly withdrawn as the colon was fully examined. Scope withdrawal time was 9 minutes. COLON FINDINGS: Mild diverticulosis was noted in the sigmoid colon. No bleeding was noted from the diverticulosis. Small internal hemorrhoids were found. Was found petechiae and in the rectosigmoid colon. A biopsy was performed using cold forceps. Retroflexed views revealed no abnormalities. The scope was then completely withdrawn from the patient and the procedure terminated. ADVERSE EVENTS: There were no complications. IMPRESSIONS: 1. Mild diverticulosis was noted in the sigmoid colon 2. Small internal hemorrhoids 3. Petechiae and in the rectosigmoid colon; biopsy was performed using cold forceps RECOMMENDATIONS: 1. avoid NSAIDS for 2 weeks 2. await biopsy results 3. follow-up: office 2 week(s) 4. Monitor for any evidence of rectal bleeding. 5. yearly hemoquant 6. hemorrhoidal hygiene 7. low fiber / diverticular diet RECALL: Return in 5 year(s) for Colonoscopy, pending biopsy results. Pending Biopsy Reggie Peng DR eSigned: Reggie Peng DR 12/09/2020 1:59 PM cc: CPT CODES: ICD9 CODES: PATIENT NAME: Brii Yo MR#: [id number]
[2020-12-09 14:26] VITALS: TEMP 97.2
[2020-12-09 14:31] VITALS: BP 112/85; O2SAT 99
== END 2020-12-09 14:30 | disposition home health service (06) ==
LOC: OR 09:54
PROVIDERS: ATTEND Surgery
PROC: 0DBN8ZX Excision of Sigmoid Colon, Via Natural or Artificial Opening Endoscopic, Diagnostic (ICD-10-PCS; principal; 2020-12-09 11:30)
DX: K57.30 Diverticulosis of large intestine without perforation or abscess without bleeding (principal); K52.9 Noninfective gastroenteritis and colitis, unspecified; K62.89 Other specified diseases of anus and rectum; K64.8 Other hemorrhoids; R23.3 Spontaneous ecchymoses
CPT/HCPCS: 88305; 45380; J2704; J7120

== ENCOUNTER 2021-02-05 10:53 | Emergency (ER) | payer BC ==
--- OUTSIDE RECORDS SUMMARY | 2021-02-05 10:57 | XMS REPORT | Continuity of Care Document ---
:1980 Author Organization [facility] t Address [address] [place] [address] Care Team Providers Name Role Phone DEANDRA Attending Clinician Unavailable Nimo INMAN, A Attending Clinician Payers Payer Name Policy Type Policy Number Effective Date Expiration Date S ricky BCBSTX PPO [id number] 2018 00:00:00 Problems This patient has no known problems. Allergies, Adverse Reactions, Alerts Allergy Allergy Status Severity Reaction(s) Onset Inactive Treating Comm ents Source Name Type Date Date Clinician No Known DA Active [facility] Medications Ordered Filled Start Stop Current Ordering Indication Dosage Frequency Signature Comments Components Source Medication Medication Date Date Medication? Clinician (SIG) Name Name Losartan Losartan 2020-0 Yes Cabrera [address] [facility] Potassium-H Potassium-H 8-04 [facility] Alprazolam Alprazolam 2019-0 Yes [place] [address] [facility] 4-02 [facility] Celexa Celexa 2019-0 Yes [place] [address] [facility] 2-03 [facility] Yes [facility]rera [address] [facility] Nexium Nexium Yes [place]rera [address] [facility] Citalopram Citalopram Yes [place] TAKE [address] [facility] Hydrobromid Hydrobromid [facility] TABLET [facility] Procedures This patient has no known procedures. Encounters Start End Encounter Admission Attending Care Care Encounter Source Date/Time Date/Time Type Type Clinicians Facility Department ID 2020-10-21 Outpatient MARGE [facility] [id number] [place] 15:16:19 [facility] 2020-10-03 Outpatient DEANDRA [facility] [id number] [place] 02:55:06 [facility] 2021-01-28 2021-01-28 Outpatient [facility] [id number] [facility] 2020-12-28 2020-12-28 [facility] [id number] [facility] 2020-11-24 2020-11-24 [facility] [id number] [facility] 2020-11-16 2020-11-16 [facility] [id number] [facility] 2020-11-16 2020-11-16 [facility] [id number] [facility] 2020-11-16 2020-11-16 [facility] [id number] [facility] 2020-11-16 2020-11-16 [facility] [id number] [facility] 2020-10-21 2020-10-21 Office MICHELLE Trujillo [facility] [id number] 15:16:13 [facility] [id number] [facility] [id number] [facility] [id number] 2020-10-20 2020-10-20 Outpatient [facility] [id number] [facility] 2020-07-22 2020-07-22 [facility] [id number] [facility] 2020-04-28 2020-04-28 [facility] [id number] [facility] 2020-01-28 2020-01-28 [facility] [id number] [address] 15:30:00 15:30:00 [place] [facility] Out[facility] Clinics 2019-12-31 2019-12-31 [facility] [id number] [facility] 16:15:00 16:15:00 t [place] [employer] - [facility] Out[facility] Clinics 2019-11-27 2019-11-27 [facility] [id number] 15:00:00 15:00:00 t [place] [facility] Out[facility] Clinics 2019-11-11 2019-11-11 [facility] [id number] [facility] [address] 10:00:00 10:00:00 t [place] [facility] l Medicine Out[facility] ent Clinics 2019-10-22 2019-10-22 [facility] [id number] 08:33:00 08:33:[address] [facility] [address] [facility] - Road [facility] Family [facility] l Medicine Outpati ent Clinics 2019-10-16 2019-10-16 [facility] [id number] [address] 14:00:00 14:00:[address] [facility] Medicine Outpati ent Clinics 2019-10-16 2019-10-16 Outpatient [facility] [id number] 10:15:00 10:15:00 t [place] - [facility] Medicine Outpati ent Clinics 2019-10-09 2019-10-09 [facility] [id number] 14:11:00 14:11:00 t [facility] Medicine Outpati ent Clinics 2019-09-30 2019-09-30 [facility] [id number] [facility] 13:00:00 13:00:00 t [place] [employer] - [facility] Medicine Outpati ent Clinics 2019-08-29 2019-08-29 [facility] [address] 13:00:00 13:00:00 [facility] [employer] [address] [facility] Medicine Outpati ent Clinics 2019-08-28 2019-08-28 [facility] [address] 11:17:00 11:17:00 [facility] Medicine Outpati ent Clinics 2019-07-03 2019-07-03 Telephone Nimo [facility] [id number] 00:00:00 00:00:00 [facility] [id number] [place] [id number] [facility] [id number] [place] [address] [address] 2019-07-01 2019-07-01 Outpatient [place] [facility] [id number] 09:00:00 09:00:[address] [place] [address] [address] [facility] Medicine Outpati ent Clinics Results Test Description Test Time Test Comments Results Result MISAEL Nguyen 2019-07-24 12:53:00 --------RUN DATE: 07/24/19 [facility] PAGE 1 RUN TIME: 1828 Specimen Inquiry RUN USER: INTERFACE --------PATIENT: MARKUS ARSHAD LOC: U #: [id number] AGE/SX: 38/F [facility] RE07/23/19REG DR: Fadumo Dooley MD : 82 BED: A DIS: 07/24/19 STATUS: DIS Efrain TLOC: -------- SPEC #: [id number] RECD: 07/23/19 STATUS: LANCE ANN #: [id number] ALEE: 07/23/19- SUBM DR: Fadumo Dooley MD ENTERED: 07/23/19-1100 SP TYPE: PERITBX OTHR DR: ORDERED: LEVEL IV/6 CODES: [id number] - PERITONEUM, NOS PROCEDURES: LEVEL IV (Incomplete) TISSUES: PERITONEUM, NOS - PERITONEUM X 6 CLINICAL HISTORY 38 year old, pelvic pain (kr) FINAL DIAGNOSIS Specimen #1 left pelvic sidewall, biopsy: - endometriosis Specimen #2 posterior culdesac, biopsy: - endometriosis Specimen #3 right posterior culdesac, biopsy: - focal fibrosis Specimen #4 right pelvic sidewall, biopsy: - fibrosis Specimen #5 right perirectal tissue, biopsy: - fibrous adhesion Specimen #6 uterus, hysterectomy: - cervix - Nabothian cysts and chronic cervicitis - endometrium - proliferative pattern - myometrium - adenomyosis, focal - multiple leiomyomas - serosa - no pathologic diagnosis - right fallopian tube - no pathologic diagnosis - left fallopian tube - benign paratubal cyst CPT code(s): 26690 x5, 36801 cds/wpd 07/24/19 CONTINUED ON NEXT PAGE --------RUN DATE: 07/24/19 [facility] PAGE 2 RUN TIME: 1828 Specimen Inquiry RUN USER: INTERFACE --------SPEC #: [id number] PATIENT: MARKUS ARSHAD SAMUEL #[id number] (Continued) GROSS DESCRIPTION ANATOMIC SOURCE OF TISSUE (per Requisition): 1. Left pelvic sidewall endometriosis 2. Posterior culdesac endometriosis 3. Right posterior culdesac endometriosis 4. Right pelvic sidewall endometriosis 5. Right perirectal endometriosis 6. Uterus, cervix, bilateral tubes Each specimen is labeled with the patient's name and medical record number. Specimen #1 is received in a formalin-filled container, labeled with the patient's name, and designated "left pelvic sidewall endometriosis". The specimen consists of two rodríguez-yellow, cauterized fibrofatty soft tissues, 1.0 and 1.8 cm. The cut surfaces display focal areas of induration, entirely submitted as A1. Specimen #2 is received in a formalin-filled container, labeled with the patient's name, and designated "posterior culdesac endometriosis". The specimen consists of two rodríguez-yellow, cauterized, fibrofatty firm tissues, 0.7 and 1.8 cm. The cut surfaces display a single 0.1 cm hemorrhagic cyst. Entirely submitted as B1. Specimen #3 is received in a formalin-filled container, labeled with the patient's name, and designated "right posterior culdesac endometriosis". The specimen consists of a 0.4 cm rodríguez-yellow, cauterized fibrofatty soft tissue, submitted in toto as C1. Specimen #4 is received in a formalin-filled container, labeled with the patient's name, and designated "right pelvic sidewall endometriosis". The specimen consists of three rodríguez-pink, cauterized fibrofatty soft tissues 0.4 to 1.6 cm. The cut surfaces displays focal areas of induration. Entirely submitted as D1. Specimen #5 is received in a formalin-filled container, labeled with the patient's name, and designated "right perirectal endometriosis". The specimen consists of a 1.0 x 0.8 x 0.3 cm rodríguez-yellow, cauterized fibrofatty soft tissues, entirely submitted as E1. Specimen #6 is received in a formalin-filled container, labeled with the patient's name, and designated "uterus, cervix, bilateral tubes". The specimen consists of a 115 gm, 10.5 x 6.5 x 4.5 cm intact uterus with an attached cervix and fimbriated fallopian tubes (right 7.5 cm in length and left 7.0 cm in length). The uterine serosa is rodríguez-pink and slightly nodular. There are no adhesions. The 4.5 cm ectocervix displays a central 1.5 cm slit-like os. The endometrium is rodríguez-red and hemorrhagic, slightly nodular and firm with thickness measuring up to 0.2 cm. The myometrium is extensively trabeculated with a wall thickness measuring up to 2.3 cm. There are multiple well-circumscribed nodules, 0.4 to 1.2 cm. The cut surfaces are rodríguez and whorled. There are no areas of hemorrhage or necrosis. The fallopian tubes are pink-purple and hyperemic with pin-point lumens. CONTINUED ON NEXT PAGE --------RUN DATE: 07/24/19 [facility] PAGE 3 RUN TIME: 1828 Specimen Inquiry RUN USER: INTERFACE --------SPEC #: [id number] PATIENT: MARKUS ARSHAD SAMUEL #[id number] (Continued) GROSS DESCRIPTION (Continued) Section code: F1 - cervix, F2 - anterior endomyometrium, F3 - posterior endomyometrium, F4 - additional endometrium and nodules, F5 - financial sales representative sections of right fallopian tube, and F6 - financial sales representative sections of left fallopian tube. tova 07/23/19 Signed Jermain Farrar Vimal 07/24/19 1253 -------- END OF REPORT HGB HCT 2019-07-24 05:18:00 Test Item Value Reference Range Interpretation Comme nts HEMOGLOBIN (test code = HGB) 10.7 g/dL 10.7-13.9 N HEMATOCRIT (test code = HCT) 33.4 % 32.1-42.1 N UR HCG [id number] 07:35:00 Test Item Value Reference Range Interpretation Comments UR HCG QUAL (test NEGATIVE 1. Very di lute urine code = HCGQLU) specimens, as indicated by a lowspecific g ravity, may not contain rep resentative levels ofhCG. 2 . False negative result s may occur when the levels of hCGare below the sensi tivity level of the test. If is still suspec [place], a first morningurine sp ecimen should be colle cted 48 hours later and tested. AG HEPATITIS B [id number] 16:15:00 Test Item Value Reference Range Interpretation Comments AG HEPATITIS B SURFACE (test code NONREACTIVE NONREACTIVE = HBSAG) IS CONSENT FORM SIGNED FOR HIV TESTING? FAIZA HEPATITIS C [id number] 16:15:00 Test Item Value Reference Range Interpretation Comments AB HEPATITIS C (test code = NONREACTIVE NONREACTIVE HCVAB) SIGNAL TO CUTOFF (test code = 0.15 <0.80 N CUTOFF) IS CONSENT FORM SIGNED FOR HIV TESTING? FAIZA HIV 1 16:15:00 Test Item Value Reference Range Interpretation Comments AB HIV 1 2 (test NONREACTIVE NONREACTIVE Done by Krista Sibleyr code = [id number]) 4th Gen HIV Ag/Ab Combo Screen IS CONSENT FORM SIGNED FOR HIV TESTING? YAG HEPATITIS B [id number] 15:40:00 Test Item Value Reference Range Interpretation Comments AG HEPATITIS B SURFACE (test code NONREACTIVE NONREACTIVE = HBSAG) IS CONSENT FORM SIGNED FOR HIV TESTING? YAB HEPATITIS C [id number] 15:40:00 Test Item Value Reference Range Interpretation Comments AB HEPATITIS C (test code = HCVAB) NONREACTIVE SIGNAL TO CUTOFF (test code = CUTOFF) <0.80 IS CONSENT FORM SIGNED FOR HIV TESTING? YAB HIV 1 15:40:00 Test Item Value Reference Range Interpretation Comments AB HIV 1 2 (test code = VOH03EM) NONREACTIVE IS CONSENT FORM SIGNED FOR HIV TESTING? YHCG SERUM [id number] 15:20:00 Test Item Value Reference Range Interpretation Comments HCG SERUM QUAL (test code = HCGQL) NEGATIVE URINALYSIS [id number] 15:17:00 Test Item Value Reference Range Interpretation Comments UA COLOR (test code = COLU) YELLOW YELLOW UA APPEARANCE (test code = Slightly-Cloudy CLEAR APPU) UA GLUCOSE DIPSTICK (test NEGATIVE NEG code = DGLUU) UA BILIRUBIN DIPSTICK (test NEGATIVE NEG code = BILU) UA KETONE DIPSTICK (test code NEGATIVE NEG = KETU) UA SPECIFIC GRAVITY (test 1.019 1.001-1.035 N code = SGU) UA BLOOD DIPSTICK (test code 3+ NEG A = AMINTA) UA PH DIPSTICK (test code = 5.0 5-9 ANDRÉS) UA PROTEIN DIPSTICK (test NEGATIVE NEG code = PROU) UA UROBILINIOGEN DIPSTICK NEGATIVE mg/dL NEG (test code = URO) UA NITRITE DIPSTICK (test NEG NEG code = JERALD) UA LEUKOCYTE ESTERASE NEG NEG DIPSTICK (test code = LEUU) UA WBC (test code = WBCU) 3-5 #/hpf NONE SEEN A UA RBC (test code = RBCU) 0-2 #/hpf NONE SEEN UA EPITHELIAL CELLS (test MODERATE #/HPF RARE-FEW A code = EPIU) UA BACTERIA (test code = RARE /HPF RARE-FEW BACU) UA MUCUS (test code = MUCU) RARE NONE SEEN URINE SAMPLE: CLEAN CATCHCBC W/AUTO [id number] 15:01:00 Test Item Value Reference Range Interpretation Comments WHITE BLOOD CELL (test code = WBC) 8.4 K/mm3 6.6-12.1 N RED BLOOD CELL (test code = RBC) 3.97 M/mm3 3.45-5.01 N HEMOGLOBIN (test code = HGB) 11.8 g/dL 10.7-13.9 N HEMATOCRIT (test code = HCT) 37.6 % 32.1-42.1 N MEAN CELL VOLUME (test code = MCV) 95 fL 84.1-94.8 H MEAN CELL HGB (test code = MCH) 29.7 pg 27-35 N MEAN CELL HGB CONCETRATION (test 31.4 gm/dL 32.2-34.1 L code = MCHC) RED CELL DISTRIBUTION WIDTH (test 14.2 % 12.4-16.5 N code = RDW) PLATELET COUNT (test code = PLT) 304 K/mm3 133-385 N MEAN PLATELET VOLUME (test code = 10.7 fl 9.1-12.7 N MPV) NEUTROPHIL % (test code = NT%) 65.6 % 56.5-79.4 N LYMPHOCYTE % (test code = LY%) 24.0 % 14.3-34.3 N MONOCYTE % (test code = MO%) 8.8 % 5.1-10.4 N EOSINOPHIL % (test code = EO%) 0.7 % 0.1-3.0 N BASOPHIL % (test code = BA%) 0.5 % 0.1-1.0 N NEUTROPHIL # (test code = NT#) 5.5 K/mm3 LYMPHOCYTE # (test code = LY#) 2.0 K/mm3 MONOCYTE # (test code = MO#) 0.7 K/mm3 EOSINOPHIL # (test code = EO#) 0.06 K/mm3 BASOPHIL # (test code = BA#) 0.0 K/mm3 RBC MORPHOLOGY REQUIRED (test code NORMAL NORMAL = RBCM) PLATELET MORPHOLOGY REQUIRED (test NORMAL NORMAL code = PLTMR)
--- NOTE | 2021-02-05 14:20 | RAD REPORT ---
EXAM DESCRIPTION: US - Extrem Venous W Compress Adolfo - 02/05/2021 1:53 pm CLINICAL HISTORY: Pain;Swelling COMPARISON: None. TECHNIQUE: Real-time sonographic evaluation of the bilateral lower extremity common femoral, superfi cial femoral, popliteal and posterior tibial veins was performed. FINDINGS: Normal compressibility, flow augmentation, phasic flow and spontaneous flow are identified in the left and right lower extremity common femoral, superficial femoral, popliteal and posterior t ibial veins. No intraluminal filling defects seen. A 6 x 2 x 2 centimeter popliteal fossa cyst is present on the right. No cyst rupture or hemorrhage fi ndings seen. No left popliteal fossa cyst identified. IMPRESSION: No DVT in either lower extremity. A 6 centimeter right popliteal fossa cyst is present.
--- NOTE | 2021-02-05 15:17 | EDPHYS ---
Physician Documentation [facility] Name: Brii Yo Age: 40 yrs Sex: Female : 1980 Arrival Date: 02/05/2021 Time: 11:11 Bed Waiting Private MD: ED Physician Abdon Klein HPI: 02/05 15:13 This 40 yrs old Female presents to ER via Ambulatory with complaints of Feet jmm Swelling, Leg Swelling. 15:13 The patient presents with pain. Onset: The symptoms/episode began/occurred gradually. jmm Modifying factors: The symptoms are alleviated by nothing. the symptoms are aggravated by nothing. Associated signs and symptoms: Pertinent positives: numbness, Pertinent negatives fever. This is a 40-year-old female with a history of chronic back pain that is status post a lumbar spine repair performed approximately [address] Jc Ayoub. Patient states she is developed increased numbness in the left leg and swelling. Patient denies shortness of breath or fever. Patient was told by spine surgery that she should expect some numbness after the procedure.. 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 - Social history:: Smoking status: Patient denies any tobacco usage or history of. ROS: 15:13 Constitutional: Negative for fever, chills, and weight loss, Cardiovascular: Negative jmm for chest pain, palpitations, and edema, Respiratory: Negative for shortness of breath, cough, wheezing, and pleuritic chest pain. 15:13 MS/extremity: Positive for swelling. 15:13 All other systems are negative. Exam: 15:13 Constitutional: This is a well developed, well nourished patient who is awake, alert, jmm and in no acute distress. Head/Face: atraumatic. Eyes: EOMI, no conjunctival erythema appreciated ENT: Moist Mucus Membranes Neck: Trachea midline, Supple Chest/axilla: Normal chest wall appearance and motion. Cardiovascular: Regular rate and rhythm. No edema appreciated Respiratory: Normal respirations, no respiratory distress appreciated Abdomen/GI: Non distended, soft Back: Normal ROM Skin: General appearance color normal 15:13 Musculoskeletal/extremity: ROM: intact in all extremities, Edema noted to the lower extremities bilaterally, full dorsalis pulses appreciated, compartments are soft, extensor pollicis longus intact bilaterally. 15:13 Skin: Appearance: Color: normal in color. 15:13 Neuro: Orientation: is normal, Mentation: is normal, Memory: is normal. 15:13 Psych: Behavior/mood is pleasant, cooperative. Vital Signs: 11:33 BP 113 / 83; Pulse 93; Resp 16; Temp 98.1; Pulse Ox 99% on R/A; Weight 97.52 kg; iw MDM: 15:13 Data reviewed: vital signs, nurses notes. Counseling: I had a detailed discussion with davon the patient and/or guardian regarding: the historical points, exam findings, and any diagnostic results supporting the discharge/admit diagnosis, radiology results, the need for outpatient follow up, to return to the emergency department if symptoms worsen or persist or if there are any questions or concerns that arise at home. ED course: I discussed the I discussed the imaging studies with the patient. Incision sites appear clean. Patient is afebrile nontoxic in appearance. I do not currently suspect spinal abscess or cord compression. Patient is advised to follow-up with her spine surgery for reevaluation patient is otherwise given strict return precautions. Patient understood and agrees plan of care.. 15:16 Patient medically screened. [facility] 02/05 13:11 Order name: US Extremity Venous W Compression Adolfo; Complete Time: 15:17 iw Administered Medications: No medications were administered Disposition: 17:48 Co-signature as Attending Physician, Abdon Klein MD I agree with the assessment and kdr plan of care. Disposition Summary: 02/05/21 15:16 Discharge Ordered Location: Home [facility] Condition: Stable [facility] Diagnosis - Popliteal cyst [facility] Followup: [facility] - With: Private Physician - When: 2 - 3 days - Reason: Recheck today's complaints, Continuance of care, Re-evaluation by your physician Discharge Instructions: - Discharge Summary Sheet tylorm - Peguero Cyst davon Forms: - Medication Reconciliation Form davon - Thank You Letter davon - Antibiotic Education davon - Prescription Opioid Use davon Signatures: Dispatcher [employer] Abdon Woods MD MD kdr Mickail, Joel, PA PA jmm Williams, Irene RN RN iw
--- NOTE | 2021-02-05 15:17 | ER ---
Nurse's Notes [facility] Name: Brii Yo Age: 40 yrs Sex: Female : 1980 Arrival Date: 02/05/2021 Time: 11:11 Bed Waiting Private MD: Diagnosis: Popliteal cyst Presentation: 02/05 11:33 Chief complaint: Patient states: had back surgery 3 weeks ago, noticed last night that iw her feet and legs were swelling up, more so on left side, also her right fingers have been numb intermittent since before her surgery. Coronavirus screen: At this time, the client does not indicate any symptoms associated with coronavirus-19. Ebola Screen: Patient negative for fever greater than or equal to 101.5 degrees Fahrenheit, and additional compatible Ebola Virus Disease symptoms Patient denies exposure to infectious person. Patient denies travel to an Ebola-affected area in the 21 days before illness onset. No symptoms or risks identified at this time. Initial Sepsis Screen: Does the patient meet any 2 criteria? No. Patient's initial sepsis screen is negative. Does the patient have a suspected source of infection? No. Patient's initial sepsis screen is negative. Risk Assessment: Do you want to hurt yourself or someone else? Patient reports no desire to harm self or others. Onset of symptoms was February 04, 2021. 11:33 Method Of Arrival: Ambulatory iw 11:33 Acuity: CLARIBEL 3 iw Triage Assessment: 14:50 General: Appears in no apparent distress. Behavior is calm, cooperative. 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 - Social history:: Smoking status: Patient denies any tobacco usage or history of. Screenin:18 Abuse screen: Denies threats or abuse. Denies injuries from another. Nutritional iw screening: No deficits noted. Tuberculosis screening: No symptoms or risk factors identified. Fall Risk None identified. Assessment: 11:35 General: Appears in no apparent distress. Behavior is calm, cooperative. Pain: iw Complains of pain in right leg and left leg. Neuro: Level of Consciousness is awake, alert, obeys commands, Oriented to person, place, time, situation, Moves all extremities. Full function. Cardiovascular: Patient's skin is warm and dry. Respiratory: Respiratory effort is even, unlabored, Respiratory pattern is regular, symmetrical. Derm: Skin is intact, is healthy with good turgor. Musculoskeletal: Range of motion: intact in all extremities. Vital Signs: 11:33 BP 113 / 83; Pulse 93; Resp 16; Temp 98.1; Pulse Ox 99% on R/A; Weight 97.52 kg; iw ED Course: 11:11 Patient arrived in ED. ds1 11:35 Triage completed. iw 11:37 Arm band placed on. iw 11:37 Patient has correct armband on for positive identification. iw 13:53 US Extremity Venous W Compression Adolfo In Process Unspecified. EDMS 15:12 Naif Phoenix PA is PHCP. [facility] 15:12 Abdon Klein MD is Attending Physician. [facility] 15:18 No provider procedures requiring assistance completed. Patient did not have IV access iw during this emergency room visit. 15:20 Micaela Major, RN is Primary Nurse. iw Administered Medications: No medications were administered Outcome: 15:16 Discharge ordered by . [facility] 15:19 Discharged to home iw 15:19 Condition: good 15:19 Discharge instructions given to patient, Instructed on discharge instructions, follow up and referral plans. Demonstrated understanding of instructions, follow-up care. 15:20 Patient left the ED. iw Signatures: Dispatcher [employer] EDMS Naif Phoenix PA PA Moriah Morel ds1 Micaela Major RN RN iw
[2021-02-05 15:27] VITALS: BP 113/83; TEMP 98.1; O2SAT 99
== END 2021-02-05 15:20 | disposition home or self-care (01) ==
LOC: ER 10:53
DX: M71.21 Synovial cyst of popliteal space [Baker], right knee (principal); I10 Essential (primary) hypertension; F41.8 Other specified anxiety disorders; Z98.890 Other specified postprocedural states
CPT/HCPCS: 93970; 99283

== ENCOUNTER 2022-02-17 16:12 | Emergency (ER) | payer BC ==
--- OUTSIDE RECORDS SUMMARY | 2022-02-17 16:15 | XMS REPORT | Continuity of Care Document ---
:1980 Author Organization [facility] t Address [address] [place] [address] Dr. Simmons[address] [place] [address] Care Team Providers Name Role Phone Soto Cabrera Ortiz Attending Clinician Unavailable ELSI LIRIANO Attending Clinician Unavailable Fadumo Dooley Attending Clinician Unavailable SARA_Tirso Attending Clinician Unavailable Sanya Ruiz Attending Clinician [phone] Nimo INMAN, Lori Harris Attending Clinician Physician, No Primary or Family Admitting Clinician Unavaila davie RUIZ_Tirso Admitting Clinician Unavailable Payers Payer Name Policy Type Policy Number Effective Date Expiration Date S ricky BCBSTX PPO [id number] 2018 00:00:00 Problems This patient has no known problems. Allergies, Adverse Reactions, Alerts Allergy Allergy Status Severity Reaction(s) Onset Inactive Treating Comm ents Source Name Type Date Date Clinician No Known DA Active U 2020-0 [facility] [place] No Known DA Active U 2020-0 [facility] Social History Social Habit Start Date Stop Date Quantity Comments Source Exposure to SARS-CoV-2 Not sure [facility] (event) Sex Assigned At [birth year] [facility] 00:[facility] 00:00:00 Smoking Status Start Date Stop Date Source Unknown if ever smoked [facility] Medications Ordered Filled Start Stop Current Ordering Indication Dosage Frequency Signature Comments Components Source Medication Medication Date Date Medication? Clinician (SIG) Name Name Losartan Losartan Yes Cabrera 1 tablet Common Potassium-H Potassium-H 8 [facility]: - [facility] Alprazolam Alprazolam Yes Cabrera 1 tablet Common 08-28 [facility] 00:[facility]: - [facility] Celexa Celexa Yes Cabrera 1 tablet Com mon 07-01 [facility] 00:[facility]: - [facility] Yes Cabrera 1 tablet Common [facility] Nexium Nexium Yes Cabrera 1 capsule Comm on [facility] Citalopram Citalopram Yes Cabrera TAKE 1 Common Hydrobromid Hydrobromid [facility] TABLET BY [facility] M[facility]TH - [facility] EVERY DAY [facility] Procedures This patient has no known procedures. Encounters Start End Encounter Admission Attending Care Care Encounter Source Date/Time Date/Time Type Type Clinicians Facility Department ID 2021-06-23 Outpatient Valera, [facility] [id number] Common 14:01:41 Cabrera [id number] [facility] 2021-06-23 Outpatient Valera, [facility] [id number] Common 13:36:29 Cabrera [id number] [facility] 2021-06-23 Outpatient Valera, [facility] [id number] Common 13:16:58 Cabrera [id number] [facility] 2021-06-23 Outpatient Valera, [facility] [id number] Common 13:06:58 Cabrera [id number] [facility] 2021-06-23 Outpatient Valera, [facility] [id number] Common 12:32:48 Cabrera [id number] [facility] 2021-06-23 Outpatient Valera, [facility] [id number] Common 12:31:58 Cabrera [id number] [facility] 2021-06-23 Outpatient Valera, [facility] ST[facility] [id number] Common 12:09:06 Cabrera [id number] [facility] 2021-06-23 Outpatient Valera, [facility] [id number] Common 11:16:32 Cabrera [id number] [facility] 2021-06-23 Outpatient Valera, [facility] ST[facility] [id number] Common 11:04:54 Cabrera [id number] [facility] 2020-10-03 Outpatient MARGERené, [facility] [id number] [place] 02:55:06 ELSI Carpio 2019-07-23 Inpatient NELL Dooley, [facility] [id number] [facility] 13:30:[address] 2022-01-17 2022-01-17 ambulatory [facility] [id number] Common 00:00:00 00:00:00 [facility] 2021-10-28 2021-10-28 Outpatient SISSON_C [facility] [id number] [place] 03:00:00 03:00:00 [id number] [facility] 2021-10-28 2021-10-28 Outpatient Sara [facility] [id number] 00:00:00 00:00:00 Sanya [id number] 2021-08-18 2021-08-18 ambulatory [facility] [id number] Common 00:00:00 00:00:00 [facility] 2021-06-28 2021-06-28 ambulatory [facility]LMLC ST[facility] [id number] Common 00:00:00 00:00:00 [facility] 2021-06-17 2021-06-17 ambulatory [facility]C [facility] [id number] Common 00:00:00 00:00:00 [facility] 2021-02-10 2021-02-10 Outpatient [facility]C [facility] [id number] Common 00:00:00 00:00:00 [facility] 2021-01-28 2021-01-28 Outpatient [facility]C [facility] [id number] Common 00:00:00 00:00:00 [facility] 2020-12-28 2020-12-28 Outpatient [facility]C [facility] [id number] Common 00:00:00 00:00:00 [facility] 2020-11-24 2020-11-24 Outpatient [facility]C [facility] [id number] Common 00:00:00 00:00:00 [facility] 2020-11-16 2020-11-16 Outpatient [facility]C [facility] [id number] Common 00:00:00 00:00:00 [facility] 2020-11-16 2020-11-16 Outpatient [facility]C [facility] [id number] Common 00:00:00 00:00:00 [facility] 2020-11-16 2020-11-16 Outpatient [facility]C [facility] [id number] Common 00:00:00 00:00:00 [facility] 2020-11-16 2020-11-16 Outpatient STL[facility]C ST[facility] [id number] Common 00:00:00 00:00:00 [facility] 2020-10-21 2020-10-21 Office Mahendranmrené [facility] [id number] 15:16:13 16:20:28 Visit [facility] [id number] [facility] [id number] SMI [id number] 2020-10-21 2020-10-21 Office [facility] [id number] [place] 15:16:13 16:20:28 Visit [facility] [id number] [facility] [id number] SMI [id number] 2020-10-20 2020-10-20 Outpatient [facility]C ST[facility] [id number] Common 00:00:00 00:00:00 [facility] 2020-07-22 2020-07-22 Outpatient STL[facility]C ST[facility] [id number] Common 00:00:00 00:00:00 [facility] 2020-04-28 2020-04-28 Outpatient STL[facility]C ST[facility] [id number] Common 00:00:00 00:00:00 [facility] 2020-01-28 2020-01-28 [facility] [id number] Common 15:30:00 15:30:[address] [place] [address] [facility] 2019-12-31 2019-12-31 [facility] [id number] Common 16:15:00 16:15:[address] [place] [address] [facility] 2019-11-27 2019-11-27 [facility] [id number] Common 15:00:00 15:00:[address] [place] [address] [facility] 2019-11-11 2019-11-11 [facility] [id number] Common 10:00:00 10:00:00 [address] [place] [address] [facility] 2019-10-22 2019-10-22 [facility] [id number] Common 08:33:00 08:33:00 t [facility] [address] [facility] 2019-10-16 2019-10-16 [facility] [id number] Common 14:00:00 14:00:[address] [facility] 2019-10-16 2019-10-16 [facility] [id number] Common 10:15:00 10:15:[address] [place] [address] [facility] 2019-10-09 2019-10-09 [facility] [id number] Common 14:11:00 14:11:[address] [facility] 2019-09-30 2019-09-30 [facility] [id number] Common 13:00:00 13:00:[address] [place] [address] [facility] 2019-08-29 2019-08-29 [facility] 30 Common 13:00:00 13:00:[address] [place] [facility] 2019-08-28 2019-08-28 [facility] 30 Common 11:17:00 11:17:00 t [facility] [address] [facility] 2019-07-03 2019-07-03 [facility] [id number] 00:00:00 00:00:00 [employer] [id number] [place] [id number] [facility] [id number] [address]al [address] 2019-07-01 2019-07-01 Outpatient [facility] 29 [id number] Common 09:00:00 09:00:00 [address] [place] [address] [facility] Results Test Description Test Time Test Comments Results Result [facility] e Haim PERITONEUM,BIOPSY 2019-07-24 12:53:00 --------RUN DATE: 07/24/19 [facility] PAGE 1 RUN TIME: 1828 Specimen Inquiry RUN USER: INTERFACE --------PATIENT: MARKUS ARSHAD LOC: [place] #: [id number] AGE/SX: 38/F ROOM: [facility] RE07/23/19REG DR: Fadumo Dooley MD : 84 BED: A DIS: 07/24/19 STATUS: DIS Efrain TLOC: -------- SPEC #: [id number] RECD: 07/23/19-1100 STATUS: LANCE ANN #: [id number] ALEE: 07/23/19- SUBM DR: Fadumo Dooley MD ENTERED: 07/23/19-1100 SP TYPE: PERITBX OTHR DR: ORDERED: LEVEL IV/6 CODES: [id number] - PERITONEUM, NOS PROCEDURES: LEVEL IV (Incomplete) [...] tube - benign paratubal cyst CPT code(s): 39949 x5, 04740 cds/wpd 07/24/19 CONTINUED ON NEXT PAGE --------RUN DATE: 07/24/19 [facility] PAGE 2 RUN TIME: 1828 Specimen Inquiry RUN USER: INTERFACE --------SPEC #: [id number] PATIENT: MARKUS ARSHAD SAMUEL #[id number] (Continued) GROSS DESCRIPTION ANATOMIC SOURCE OF TISSUE [...] Specimen Inquiry RUN USER: INTERFACE --------SPEC #: [id number] PATIENT: MARKUS ARSHAD SAMUEL #[id number] (Continued) GROSS DESCRIPTION (Continued) Section code: F1 - cervix, F2 - anterior endomyometrium, F3 - posterior endomyometrium, F4 - additional endometrium and nodules, F5 - medical customer service representative sections of right fallopian tube, and F6 - medical customer service representative sections of left fallopian tube. tova 07/23/19 Signed Jermain Farrar 07/24/19 1253 -------- END OF REPORT HGB HCT 2019-07-24 05:18:00 Test Item Value Reference Range Interpretation Comme nts HEMOGLOBIN (test code = HGB) 10.7 g/dL 10.7-13.9 N HEMATOCRIT (test code = HCT) 33.4 % 32.1-42.1 N UR HCG [id number] 07:35:00 Test Item Value Reference Range Interpretation [...] hours later and tested. AG HEPATITIS B [id number] 16:15:00 Test Item Value Reference Range Interpretation Comments AG HEPATITIS B SURFACE (test code NONREACTIVE NONREACTIVE = HBSAG) IS CONSENT FORM SIGNED FOR HIV TESTING? YAB HEPATITIS C [id number] 16:15:00 Test Item Value Reference Range Interpretation Comments AB HEPATITIS C (test code = NONREACTIVE NONREACTIVE HCVAB) SIGNAL TO CUTOFF (test code = 0.15 <0.80 N CUTOFF) IS CONSENT FORM SIGNED FOR HIV TESTING? YAB HIV 1 16:15:00 Test Item Value Reference Range Interpretation Comments AB HIV 1 2 (test NONREACTIVE NONREACTIVE [facility] code = [id number]) 4th Gen HIV Ag/Ab Combo Screen IS CONSENT FORM SIGNED FOR HIV TESTING? YAG HEPATITIS B [id number] 15:40:00 Test Item Value Reference Range Interpretation Comments AG HEPATITIS B SURFACE (test code NONREACTIVE NONREACTIVE = HBSAG) IS CONSENT FORM SIGNED FOR HIV TESTING? YAB HEPATITIS C [id number] 15:40:00 Test Item Value Reference Range Interpretation Comments AB HEPATITIS C (test code = HCVAB) NONREACTIVE SIGNAL TO CUTOFF (test code = CUTOFF) <0.80 IS CONSENT FORM SIGNED FOR HIV TESTING? YAB HIV 1 15:40:00 Test Item Value Reference Range Interpretation Comments AB HIV 1 2 (test code = CXQ99OQ) NONREACTIVE IS CONSENT FORM SIGNED FOR HIV TESTING? YHCG SERUM [id number] 15:20:00 Test Item Value Reference Range Interpretation Comments HCG SERUM QUAL (test code = HCGQL) NEGATIVE URINALYSIS [id number] 15:17:00 Test Item Value Reference Range Interpretation [...] NONE SEEN URINE SAMPLE: CLEAN CATCHCBC W/AUTO [id number] 15:01:00 Test Item Value Reference Range Interpretation [...]
[2022-02-17] MEDS ORDERED: GABAPENTIN 300 MG CAP ONE (16:55)
[2022-02-17] MEDS ORDERED: HYDROCODONE/APAP 5/325 MG TAB ONE (16:55)
[2022-02-17] MEDS ORDERED: DIAZEPAM 5 MG TABLET ONE (16:55)
--- NOTE | 2022-02-17 18:28 | ER ---
Nurse's Notes [facility] Name: Brii Yo Age: 41 yrs Sex: Female : 1980 Arrival Date: 02/17/2022 Time: 16:14 Bed 12 Private MD: Diagnosis: Lumbago with sciatica, unspecified side Presentation: 02/17 16:38 Chief complaint: Patient states: "I was using the toilet yesterday and when I went to [facility] get up off the toilet I felt like my back caught and I started having back pain". Pt states "my back, pelvis, and butt hurt". Coronavirus screen: At this time, the client does not indicate any symptoms associated with coronavirus-19. Ebola Screen: Patient denies travel to an Ebola-affected area in the 21 days before illness onset. Initial Sepsis Screen: Does the patient meet any 2 criteria? No. Patient's initial sepsis screen is negative. Does the patient have a suspected source of infection? No. Patient's initial sepsis screen is negative. Risk Assessment: Do you want to hurt yourself or someone else? Patient reports no desire to harm self or others. Onset of symptoms was January 2022. 16:38 Method Of Arrival: Ambulatory aa5 16:38 Acuity: CLARIBEL 4 aa5 Historical: - Allergies: 16:40 No Known Allergies; aa5 - PMHx: 16:40 Anxiety; chronic back pain; Depression; GERD; Hypertension; aa5 - PSHx: 16:40 breast augmentation; gastric sleeve; hysterectomy; Tummy tuck; Back sx; aa5 - Immunization history:: Adult Immunizations unknown. - Social history:: Smoking status: Patient denies any tobacco usage or history of. Assessment: 16:53 Reassessment: Patient is alert, oriented x 3, equal unlabored respirations, skin aa5 warm/dry/pink. 18:25 Reassessment: Patient is alert, oriented x 3, equal unlabored respirations, skin aa5 warm/dry/pink. Patient states symptoms have improved. 18:45 Reassessment: Patient is alert, oriented x 3, equal unlabored respirations, skin aa5 warm/dry/pink. Vital Signs: 16:38 BP 142 / 106; Pulse 66; Resp 18 S; Temp 97.3(TE); Pulse Ox 98% on R/A; Weight 86.64 kg aa5 (R); ED Course: 16:14 Patient arrived in ED. rg4 16:30 Ghislaine Aceves FNP-C [facility] snw 16:30 Frederick Singleton MD is Attending Physician. snw 16:38 Arm band placed on. aa5 16:40 Triage completed. aa5 18:45 No provider procedures requiring assistance completed. Patient did not have IV access aa5 during this emergency room visit. Administered Medications: 16:52 Drug: Neurontin (gabapentin) 300 mg Route: PO; aa5 18:45 Follow up: Response: No adverse reaction aa5 16:53 Drug: Valium (diazepam) 5 mg Route: PO; aa5 18:45 Follow up: Response: No adverse reaction aa5 16:53 Drug: Pickerel (HYDROcodone-acetaminophen) 5 mg-325 mg 1 tabs Route: PO; aa5 18:45 Follow up: Response: No adverse reaction aa5 Medication: 18:45 VIS not applicable for this client. aa5 Outcome: 18:27 Discharge ordered by . snw 18:45 Discharged to home ambulatory. aa5 18:45 Condition: improved 18:45 Discharge instructions given to patient, Instructed on discharge instructions, follow up and referral plans. medication usage, Demonstrated understanding of instructions, follow-up care, medications, Prescriptions given X 2. 18:47 Patient left the ED. aa5 Signatures: Ghislaine Aceves FNP-C AEROSPACE MANAGER-Csnw Sabina Maria RN RN aa5 Kitty Uriarte rg4 Corrections: (The following items were deleted from the chart) 16:41 16:40 PSHx: back; aa5 aa5
--- NOTE | 2022-02-17 18:28 | EDPHYS ---
Physician Documentation [facility] Name: Brii Yo Age: 41 yrs Sex: Female : 1980 Arrival Date: 02/17/2022 Time: 16:14 Bed 12 Private MD: MAXIMO Physician Frederick Singleton HPI: 02/17 16:47 This 41 yrs old Female presents to ER via Ambulatory with complaints of Back Pain. snw 16:47 The patient presents with pain that is acute, with no known mechanism of injury, that snw is chronic. The symptoms are located in the low back. Onset: The symptoms/episode began/occurred suddenly, 2 day(s) ago, and became worse and became persistent. The pain radiates to the right gluteal fold. Associated signs and symptoms: Pertinent positives: blood pressure has been elevated. Modifying factors: The patient symptoms are alleviated by movement. Severity of symptoms: At their worst the symptoms were moderate, severe. The patient has experienced similar episodes in the past, multiple times. The patient has not recently seen a physician. Historical: - Allergies: 16:40 No Known Allergies; aa5 - PMHx: 16:40 Anxiety; chronic back pain; Depression; GERD; Hypertension; aa5 - PSHx: 16:40 breast augmentation; gastric sleeve; hysterectomy; Tummy tuck; Back sx; aa5 - Immunization history:: Adult Immunizations unknown. - Social history:: Smoking status: Patient denies any tobacco usage or history of. ROS: 16:46 Constitutional: Negative for fever, chills, and weight loss, Eyes: Negative for injury, snw pain, redness, and discharge, ENT: Negative for injury, pain, and discharge, Neck: Negative for injury, pain, and swelling, Cardiovascular: Negative for chest pain, palpitations, and edema, Respiratory: Negative for shortness of breath, cough, wheezing, and pleuritic chest pain, Abdomen/GI: Negative for abdominal pain, nausea, vomiting, diarrhea, and constipation, : Negative for injury, bleeding, discharge, and swelling, MS/Extremity: Negative for injury and deformity, Skin: Negative for injury, rash, and discoloration, Neuro: Negative for headache, weakness, numbness, tingling, and seizure, Psych: Negative for depression, anxiety, suicide ideation, homicidal ideation, and hallucinations. 16:46 Back: Positive for decreased range of motion, pain at rest, pain with movement, radiated pain, of the low back area. Exam: 16:44 Constitutional: This is a well developed, well nourished patient who is awake, alert, snw and in no acute distress. Head/Face: Normocephalic, atraumatic. Eyes: Pupils equal round and reactive to light, extra-ocular motions intact. Lids and lashes normal. Conjunctiva and sclera are non-icteric and not injected. Cornea within normal limits. Periorbital areas with no swelling, redness, or edema. ENT: Nares patent. No nasal discharge, no septal abnormalities noted. Tympanic membranes are normal and external auditory canals are clear. Oropharynx with no redness, swelling, or masses, exudates, or evidence of obstruction, uvula midline. Mucous membranes moist. Neck: Trachea midline, no thyromegaly or masses palpated, and no cervical lymphadenopathy. Supple, full range of motion without nuchal rigidity, or vertebral point tenderness. No Meningismus. Chest/axilla: Normal chest wall appearance and motion. Nontender with no deformity. No lesions are appreciated. Cardiovascular: Regular rate and rhythm with a normal S1 and S2. No gallops, murmurs, or rubs. Normal PMI, no JVD. No pulse deficits. Respiratory: Lungs have equal breath sounds bilaterally, clear to auscultation and percussion. No rales, rhonchi or wheezes noted. No increased work of breathing, no retractions or nasal flaring. Abdomen/GI: Soft, non-tender, with normal bowel sounds. No distension or tympany. No guarding or rebound. No evidence of tenderness throughout. Skin: Warm, dry with normal turgor. Normal color with no rashes, no lesions, and no evidence of cellulitis. MS/ Extremity: Pulses equal, no cyanosis. Neurovascular intact. Full, normal range of motion. Neuro: Awake and alert, GCS 15, oriented to person, place, time, and situation. Cranial nerves II-XII grossly intact. Motor strength 5/5 in all extremities. Sensory grossly intact. Cerebellar exam normal. Normal gait. Psych: Awake, alert, with orientation to person, place and time. Behavior, mood, and affect are within normal limits. 16:44 Back: pain, that is moderate, of the low back area, ROM is painful, with flexion, normal spinal alignment noted, CVA tenderness, is absent, muscle spasm, is appreciated in the low back area, pt has had prior back surgery, history of neuropathy, planned procedure for numbness. Pt was sitting on toilet and when she stood, felt pop and has had pain and decreased ROM since.. Vital Signs: 16:38 BP 142 / 106; Pulse 66; Resp 18 S; Temp 97.3(TE); Pulse Ox 98% on R/A; Weight 86.64 kg aa5 (R); MDM: 16:42 Patient medically screened. snw 18:30 Data reviewed: vital signs, nurses notes. Data interpreted: Pulse oximetry: on room air snw is 98 %. Counseling: I had a detailed discussion with the patient and/or guardian regarding: the historical points, exam findings, and any diagnostic results supporting the discharge/admit diagnosis, the presence of at least one elevated blood pressure reading (>120/80) during this emergency department visit, the need for outpatient follow up, to return to the emergency department if symptoms worsen or persist or if there are any questions or concerns that arise at home. Response to treatment: the patient's symptoms have mildly improved after treatment. Special discussion: Based on the history and exam findings, there is no indication for further emergent testing or inpatient evaluation. I discussed with the patient/guardian the need to see the primary care provider for further evaluation of the symptoms. Administered Medications: 16:52 Drug: Neurontin (gabapentin) 300 mg Route: PO; aa5 18:45 Follow up: Response: No adverse reaction aa5 16:53 Drug: Valium (diazepam) 5 mg Route: PO; aa5 18:45 Follow up: Response: No adverse reaction aa5 16:53 Drug: [place] (HYDROcodone-acetaminophen) 5 mg-325 mg 1 tabs Route: PO; aa5 18:45 Follow up: Response: No adverse reaction aa5 Disposition Summary: 02/17/22 18:27 Discharge Ordered Location: Home snw Condition: Stable snw Diagnosis - Lumbago with sciatica, unspecified side snw Followup: snw - With: Emergency Department - When: As needed - Reason: Worsening of condition Followup: snw - With: Private Physician - When: 2 - 3 days - Reason: Recheck today's complaints, Continuance of care, Re-evaluation by your physician Discharge Instructions: - Discharge Summary Sheet snw - Chronic Back Pain snw - Sciatica snw - Radicular Pain snw Forms: - Medication Reconciliation Form snw - Thank You Letter snw - Antibiotic Education snw - Prescription Opioid Use snw Prescriptions: - Diclofenac Sodium 75 mg Oral Tablet Sustained Release - take 1 tablet by ORAL route 2 times per day; 30 tablet; Refills: 0, Product snw Selection Permitted - orphenadrine citrate 100 mg Oral Tablet Sustained Release - take 1 tablet by ORAL route 2 times per day As needed; 20 tablet; Refills: 0, snw Product Selection Permitted Signatures: Ghislaine Aceves, ADIL[employer] Sabina Maria RN RN aa5 Corrections: (The following items were deleted from the chart) 16:41 16:40 PSHx: back; aa5 aa5
[2022-02-19 07:32] VITALS: BP 142/106; TEMP 97.3; O2SAT 98
== END 2022-02-17 18:47 | disposition home or self-care (01) ==
LOC: ER 16:12
DX: M54.40 Lumbago with sciatica, unspecified side (principal); I10 Essential (primary) hypertension; Z98.82 Breast implant status
CPT/HCPCS: 99283

== ENCOUNTER 2023-04-23 20:55 | Emergency (ER) | payer BC, SELFPAY ==
--- OUTSIDE RECORDS SUMMARY | 2023-04-23 21:00 | XMS REPORT | Continuity of Care Document ---
:1980 Author Organization [facility] t Address [address] [place] [address] [address] [place] [address] Care Team Providers Name Role Phone Cabrera Valera Primary Care Physician Cabrera Valera Attending Clinician Unavailable ELSI TRUJILLO Attending Clinician Unavailable Fadumo Dooley Attending Clinician Unavailable MANUEL CARROLL Attending Clinician Unavailable MANUEL CARROLL Attending Clinician Unavailable Manuel Carroll MD Attending Clinician Doctor Unassigned, [place] Attending Clinician Unavailable Lori Suero MD Attending Clinician Physician, No Primary or Family Admitting Clinician UnavailMANUEL Marroquin Admitting Clinician Unavailable Payers Payer Name Policy Type Policy Number Effective Date Expiration Date Krista garcía BCBSTX PPO [id number] 2018 00:00:00 [employer] 6 [id number] 2018 Common Sp[facility] t Blue Shield of 00:00:[address] - [facility] Problems Condition Condition Condition Status Onset Resolution Last Treating Co mments Source Name Details Category Date Date Treatment Clinician Date 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 2- it y of 00:00: [place] [facility] Elevated Elevated Disease Active 2018-05 Unive rs blood blood 2- ity of pressure pressure 00:00: [place] reading reading 00 Medical without without Branch diagnosis diagnosis of of hypertensi hypertensi on on Multiple Multiple Disease Active 2018-05 Unive rs thyroid thyroid 0-07 ity of nodules nodules 00:00: [place] [address] Medical Branch GERD GERD Disease Active 2018-05 Univers (gastroeso (gastroeso 0-06 it y of phageal phageal 00:00: [place] reflux reflux Medical disease) disease) Branch Chronic Chronic Disease Active 2018-05 Univers fatigue fatigue 0-06 ity of 00:00: [place] [address] Medical Branch B12 B12 Disease Active Overview: Univer s deficiency deficiency 02-25 Formattin ity of 00:00: g of this note Medical might be Branch different from the original. Relative deficienc y <400 Anxiety Anxiety Disease Active Univers 9- ity of 00:00: [place] [address] Medical Branch [id number] Endometrio Problem Co mmon sis Spirit - [facility] [id number] H/O: Problem Common hysterecto Spirit my - [facility] [id number] Essential Problem Comm on hypertensi Spirit on - [facility] [id number] Generalize Problem Com mon d anxiety Spirit disorder - [facility] [id number] Current Problem Common moderate Spirit episode of - [facility] major [facility] depressive [facility] disorder Medical without Center prior episode [id number] GERD Problem Common without Spirit esophagiti - [facility] [id number] Panic Problem Common disorder Spirit [episodic - [facility] parox[facility]mal [facility] anxiety[facility] Allergies, Adverse Reactions, Alerts Allergy Allergy Status Severity Reaction(s) Onset Inactive Treating Comm ents Source Name Type Date Date Clinician No Known DA Active U 2020-0 [facility] 00 [facility] No Known DA Active U 2020-0 [facility] Allergie 2-06 [facility] 00:[facility]: [facility] 00 [facility] NO KNOWN Drug Active Univers ALLERGIE Class ity of S [facility] Social History Social Habit Start Date Stop Date Quantity Comments Source History of Common Spirit - Tobacco Use [facility] Exposure to 2022-05-07 2022-05-17 Not sure [facility]-CoV-2 00:00:00 10:06:00 [facility] (event) [place] Alcohol intake 2019-04-12 2019-04-12 Current drinker Unive rsity of 00:00:00 00:00:00 of alcohol [facility] (finding) [place] Tobacco use and 2019-02-21 2019-02-21 Smokeless tobacco Un iversity of exposure 00:00:00 00:00:00 non-user [facility] Alcohol Comment 2019-02-21 2019-02-21 social Universit y of 00:00:00 00:00:00 [facility] Sex [birth year] At [birth year] Universit y of 00:00:00 00:00:00 [facility] Smoking Status Start Date Stop Date Source Unknown if ever smoked [facility] Former Smoker 2022-09-24 00:00:00 2022-09-24 00:00:00 Common S pirit - [facility] nter Never smoked tobacco [facility] Medications Ordered Filled Start Stop Current Ordering Indication Dosage Frequency Signature Comments Components Source Medication Medication Date Date Medication? Clinician (SIG) Name Name ALPRAZolam ALPRAZolam No 1{table ALPRAZolam 0.25 MG 0.25 MG 1-17 t} 0.25 MG 00:00: 00 amoxicillin 2021-05- No amoxicilli [facility] 07-25 n 500 ity of clavulanate 09:: 00:00 mg-potassi [place] 500 mg 48 :00 Medical 500-125 mg clavulanat Bra nc tablet e 125 mg tablet TAKE 1 TABLET BY MOUTH EVERY 12 HOURS FOR 7 DAYS amoxicillin 2021-05- No amoxicilli [facility] 07-25 n 500 ity of clavulanate 09:28: 00:00 mg-potassi [place] 500 mg 48 :00 um Medical 500-125 mg clavulanat Bra nch tablet e 125 mg tablet TAKE 1 TABLET BY MOUTH EVERY 12 HOURS FOR 7 DAYS naltrexone 2021-05 Yes naltrexone U nivers 50 mg 2-20 50 mg ity of tablet 10:23: tablet [address] naltrexone 2021-05 Yes naltrexone U nivers 50 mg 2-20 50 mg ity of tablet 10:23: tablet [address] naltrexone 2021-05 Yes naltrexone U nivers 50 mg 2-20 50 mg ity of tablet 10:23: tablet [address] gadoteridol 2021-05- No [id number] .2mL/kg 0.2 mL/kg, Univers (PROHANCE-2 18 12-18 Intravenou i ty of 0 mL) 20:45: 20:42 s, ONCE, 1 [place] injection 00 :00 dose, On Medica l 0.2 mL/kg [facility] 05/15/22 at 1445, Routine traMADoL 50 2021-05 Yes tramadol Un saulo mg tablet 2-06 50 mg ity of 10:29: tablet [address] phentermine 2021-05 Yes 37.5mg Take 37.5 Univers 37.5 mg 2-06 mg by ity of tablet 10:29: mouth. [address] esomeprazol 2021-05 Yes 20mg Take 20 mg Univers e 20 mg 2-06 by mouth ity of capsule 10:29: daily [place] 02 before a Medical meal. Branch Norethindrn 2021-05 Yes Take by Uni vers A-E 2-06 mouth. ity of Estradiol-I 10:29: [place] renato 1 mg-20 02 Medical mcg (24)/75 Branch mg (4) per tablet traMADoL 50 2021-05 Yes tramadol Un [place] mg tablet 2-06 50 mg ity of 10:29: tablet [address] phentermine 2021-05 Yes 37.5mg Take 37.5 Univers 37.5 mg 2-06 mg by ity of tablet 10:29: mouth. [address] esomeprazol 2021-05 Yes 20mg Take 20 mg Univers e 20 mg 2-06 by mouth ity of capsule 10:29: daily [place] 02 before a Medical meal. Branch Norethindrn 2021-05 Yes Take by Uni vers A-E 2-06 mouth. ity of Estradiol-I 10:29: [place] renato 1 mg-20 02 Medical mcg (24)/75 Branch mg (4) per tablet traMADoL 50 2021-05 Yes tramadol Un sa[place] mg tablet 2-06 50 mg ity of 10:29: tablet [facility] Branch phentermine 2021-05 Yes 37.5mg Take 37.5 Univers 37.5 mg 2-06 mg by ity of tablet 10:29: mouth. [facility] Branch esomeprazol 2021-05 Yes 20mg Take 20 mg Univers e 20 mg 2-06 by mouth ity of capsule 10:29: daily [place] 02 before a Medical meal. Branch Norethindrn 2021-05 Yes Take by Uni vers A-E 2-06 mouth. ity of Estradiol-I 10:29: [place] renato 1 mg-20 02 Medical mcg (24)/75 Branch mg (4) per tablet traMADoL 50 2021-05 Yes tramadol Un [place] mg tablet 2-06 50 mg ity of 10:29: tablet [facility] phentermine 2021-05 Yes 37.5mg Take 37.5 Univers 37.5 mg 2-06 mg by ity of tablet 10:29: mouth. [facility] esomeprazol 2021-05 Yes 20mg Take 20 mg Univers e 20 mg 2-06 by mouth ity of capsule 10:29: daily [place] 02 before a Medical meal. Branch Norethindrn 2021-05 Yes Take by Uni vers A-E 2-06 mouth. ity of Estradiol-I 10:29: [place] renato 1 mg-20 02 Medical mcg (24)/75 Branch mg (4) per tablet traMADoL 50 2021-05 Yes tramadol [place] mg tablet 2-06 50 mg ity of 10:29: tablet [facility] Branch phentermine 2021-05 Yes 37.5mg Take 37.5 Univers 37.5 mg 2-06 mg by ity of tablet 10:29: mouth. [facility] esomeprazol 2021-05 Yes 20mg Take 20 mg Univers e 20 mg 2-06 by mouth ity of capsule 10:29: daily [place] 02 before a Medical meal. Branch Norethindrn 2021-05 Yes Take by Uni vers A-E 2-06 mouth. ity of Estradiol-I 10:29: [place] renato 1 mg-20 02 Medical mcg (24)/75 Branch mg (4) per tablet traMADoL 50 2021-05 Yes tramadol Un [place] mg tablet 2-06 50 mg ity of 10:29: tablet [place] [facility] phentermine 2021-05 Yes 37.5mg Take 37.5 Univers 37.5 mg 2-06 mg by ity of tablet 10:29: mouth. [address] Branch esomeprazol 2021-05 Yes 20mg Take 20 mg Univers e 20 mg 2-06 by mouth ity of capsule 10:29: daily [place] 02 before a Medical meal. Branch Norethindrn 2021-05 Yes Take by Uni vers A-E 2-06 mouth. ity of Estradiol-I 10:29: [place] renato 1 mg-20 02 Medical mcg (24)/75 Branch mg (4) [facility] Yes acetaminop Univers en-codeine 2-06 hen 300 ity of 300-30 mg 10:27: mg-codeine [place] tablet 38 30 mg Medical tablet Branch amoxicillin 2021-05 Yes amoxicilli Univers -pot 2-06 n 500 ity of clavulanate 10:27: mg-potassi [place] 500 mg 38 um Medical 500-125 mg clavulanat Bra nch tablet e 125 mg tablet TAKE 1 TABLET BY MOUTH EVERY 12 HOURS FOR 7 DAYS dicyclomine 2021-05 Yes dicyclomin Univers 20 mg 2-06 e 20 mg ity of tablet 10:27: tablet [place] 38 TAKE 1 Medical TABLET BY Branch MOUTH EVERY 6 HOURS NEEDED HYDROcodone 2021-05 Yes hydrocodon Univers -acetaminop 2-06 e 10 ity of hen 10-325 10:27: mg-acetami [place] mg tablet 38 nophen 325 Medi hugh mg tablet Branch acetaminoph 2021-05 Yes acetaminop Univers en-codeine 2-06 hen 300 ity of 300-30 mg 10:27: mg-codeine [place] tablet 38 30 mg Medical tablet Branch dicyclomine 2021-05 Yes dicyclomin Univers 20 mg 2-06 e 20 mg ity of tablet 10:27: tablet [place] 38 TAKE 1 Medical TABLET BY Branch MOUTH EVERY 6 HOURS NEEDED HYDROcodone 2021-05 Yes hydrocodon Univers -acetaminop 2-06 e 10 ity of hen 10-325 10:27: mg-acetami [place] mg tablet 38 nophen 325 Medi hugh mg tablet Branch acetaminoph 2021-05 Yes acetaminop Univers en-codeine 2-06 hen 300 ity of 300-30 mg 10:27: mg-codeine [place] tablet 38 30 mg Medical tablet [place] dicyclomine 2021-05 Yes dicyclomin Univers 20 mg 2-06 e 20 mg ity of tablet 10:27: tablet [place] 38 TAKE 1 Medical TABLET BY Branch MOUTH EVERY 6 HOURS NEEDED HYDROcodone 2021-05 Yes hydrocodon Univers -acetaminop 2-06 e 10 ity of hen 10-325 10:27: mg-acetami [place] mg tablet 38 nophen 325 Medi [place] mg tablet [facility] 2021-05 Yes acetaminop Univers en-codeine 2-06 hen 300 ity of 300-30 mg 10:27: mg-codeine [place] tablet 38 30 mg Medical tablet [place] dicyclomine 2021-05 Yes dicyclomin Univers 20 mg 2-06 e 20 mg ity of tablet 10:27: tablet [place] 38 TAKE 1 Medical TABLET BY Branch MOUTH EVERY 6 HOURS NEEDED HYDROcodone 2021-05 Yes hydrocodon Univers -acetaminop 2-06 e 10 ity of hen 10-325 10:27: mg-acetami [place] mg tablet 38 nophen 325 Medi hug[place] mg tablet [facility] 2021-05 Yes acetaminop Univers en-codeine 2-06 hen 300 ity of 300-30 mg 10:27: mg-codeine [place] tablet 38 30 mg Medical tablet [place] amoxicillin 2021-05 Yes amoxicilli Univers -pot 2-06 n 500 ity of clavulanate 10:27: mg-potassi [place] 500 mg 38 um Medical 500-125 mg clavulanat Bra nch tablet e 125 mg tablet TAKE 1 TABLET BY MOUTH EVERY 12 HOURS FOR 7 DAYS dicyclomine 2021-05 Yes dicyclomin Univers 20 mg 2-06 e 20 mg ity of tablet 10:27: tablet [place] 38 TAKE 1 Medical TABLET BY Branch MOUTH EVERY 6 HOURS NEEDED HYDROcodone 2021-05 Yes hydrocodon Univers -acetaminop 2-06 e 10 ity of hen 10-325 10:27: mg-acetami [place] mg tablet 38 nophen 325 Medi hugh mg tablet [facility] 2021-05 Yes acetaminop Univers en-codeine 2-06 hen 300 ity of 300-30 mg 10:27: mg-codeine [place] tablet 38 30 mg Medical tablet [place] amoxicillin 2021-05 Yes amoxicilli Univers -pot 2-06 n 500 ity of clavulanate 10:27: mg-potassi [place] 500 mg 38 um Medical 500-125 mg clavulanat Bra nch tablet e 125 mg tablet TAKE 1 TABLET BY MOUTH EVERY 12 HOURS FOR 7 DAYS dicyclomine 2021-05 Yes dicyclomin Univers 20 mg 2-06 e 20 mg ity of tablet 10:27: tablet [place] 38 TAKE 1 Medical TABLET BY Branch MOUTH EVERY 6 HOURS NEEDED HYDROcodone 2021-05 Yes hydrocodon Univers -acetaminop 2-06 e 10 ity of hen 10-325 10:27: mg-acetami [place] mg tablet 38 nophen 325 Medi hugh mg tablet [place] pregabalin 2021-05 Yes pregabalin U nivers 75 mg 2-06 75 mg ity of capsule 10:21: capsule [address] pregabalin 2021-05 Yes pregabalin U nivers 75 mg 2-06 75 mg ity of capsule 10:21: capsule [address] pregabalin 2021-05 Yes pregabalin U nivers 75 mg 2-06 75 mg ity of capsule 10:21: capsule [address] pregabalin 2021-05 Yes pregabalin U nivers 75 mg 2-06 75 mg ity of capsule 10:21: capsule [address] pregabalin 2021-05 Yes pregabalin U nivers 75 mg 2-06 75 mg ity of capsule 10:21: capsule [address] pregabalin 2021-05 Yes pregabalin U nivers 75 mg 2-06 75 mg ity of capsule 10:21: capsule [address] meloxicam 2021-05 Yes TAKE 1 Univer s 15 mg 2-06 TABLET BY ity of tablet 00:00: MOUTH [place] 00 EVERY DAY Medical AFTER Branch COMPLETING MEDROL DOSE PACK meloxicam 2021-05 Yes TAKE 1 Univer s 15 mg 2-06 TABLET BY ity of tablet 00:00: MOUTH [place] 00 EVERY DAY Medical AFTER Branch COMPLETING MEDROL DOSE PACK meloxicam 2021-05 Yes TAKE 1 Univer s 15 mg 2-06 TABLET BY ity of tablet 00:00: MOUTH [place] 00 EVERY DAY Medical AFTER Branch COMPLETING MEDROL DOSE PACK tiZANidine 2021-05 Yes TAKE 1 Unive rs 4 mg tablet 1-14 TABLET BY ity of 00:00: MOUTH AT [place] 00 BEDTIME Medical NEEDED FOR Branch PAIN tiZANidine 2021-05 Yes TAKE 1 Unive rs 4 mg tablet 1-14 TABLET BY ity of 00:00: MOUTH AT [place] 00 BEDTIME Medical NEEDED FOR Branch PAIN tiZANidine 2021-05 Yes TAKE 1 Unive rs 4 mg tablet 1-14 TABLET BY ity of 00:00: MOUTH AT [place] 00 BEDTIME Medical NEEDED FOR Branch PAIN tiZANidine 2021-05 Yes TAKE 1 Unive rs 4 mg tablet 1-14 TABLET BY ity of 00:00: MOUTH AT [place] 00 BEDTIME Medical NEEDED FOR Branch PAIN tiZANidine 2021-05 Yes TAKE 1 Unive rs 4 mg tablet 1-14 TABLET BY ity of 00:00: MOUTH AT [place] [address] BEDTIME Medical NEEDED FOR Branch PAIN tiZANidine 2021-05 Yes TAKE 1 Unive rs 4 mg tablet 1-14 TABLET BY ity of 00:00: MOUTH AT [place] [address] BEDTIME Medical NEEDED FOR Branch PAIN ALPRAZolam ALPRAZolam 2021-05 No 1{table ALPRAZolam 0.25 MG 0.25 MG 0-31 t} 0.25 MG 00:00: 00 [facility] [facility] 3 2021-05 Yes PLEASE SEE [place] mg/0.5 mL 0-25 ATTACHED ity of (18 mg/3 00:00: FOR [place] mL) PnIj 00 DETAILED Medical DIRECTIONS Branch [facility] [place] 3 2021-05 Yes PLEASE SEE [place] mg/0.5 mL 0-25 ATTACHED ity of (18 mg/3 00:00: FOR [place] mL) PnIj 00 DETAILED Medical DIRECTIONS Branch [facility] [place] 3 2021-05 Yes PLEASE SEE [place] mg/0.5 mL 0-25 ATTACHED ity of (18 mg/3 00:00: FOR [place] mL) PnIj 00 DETAILED Medical DIRECTIONS Branch [facility] [place] 3 2021-05 Yes PLEASE SEE [place] mg/0.5 mL 0-25 ATTACHED ity of (18 mg/3 00:00: FOR [place] mL) PnIj 00 DETAILED Medical DIRECTIONS Branch [facility] [place] 3 2021-05 Yes PLEASE SEE Un saluo mg/0.5 mL 0-25 ATTACHED ity of (18 mg/3 00:00: FOR [place] mL) PnIj 00 DETAILED Medical DIRECTIONS Branch [facility] 3 2021-05 Yes PLEASE SEE [place] mg/0.5 mL 0-25 ATTACHED ity of (18 mg/3 00:00: FOR [place] mL) PnIj 00 DETAILED [facility] Branch oxyCODONE-a 2021-05 Yes Univer s cetaminophe 0-07 ity of n 10-325 mg 00:00: [place] per tablet 00 Medical Branch oxyCODONE-a 2021-05 Yes Univer s cetaminophe 0-07 ity of n 10-325 mg 00:00: [place] per tablet Medical Branch oxyCODONE-a 2021-05 Yes Univer s cetaminophe 0-07 ity of n 10-325 mg 00:00: [place] per tablet Medical Branch citalopram Yes citalopram U nivers 40 mg 2-26 40 mg ity of tablet 00:00: tablet Medical Branch citalopram Yes citalopram U nivers 40 mg 2-26 40 mg ity of tablet 00:00: tablet Medical Branch citalopram Yes citalopram U nivers 40 mg 2-26 40 mg ity of tablet 00:00: tablet Medical Branch citalopram Yes citalopram U nivers 40 mg 2-26 40 mg ity of tablet 00:00: tablet Medical Branch citalopram Yes citalopram U nivers 40 mg 2-26 40 mg ity of tablet 00:00: tablet Medical Branch citalopram Yes citalopram U nivers 40 mg 2-26 40 mg ity of tablet 00:00: tablet Medical Branch losartan-hy Yes losartan [place] drochloroth 2-06 50 ity of iazide 00:00: mg-hydroch [place] 50-12.5 mg 00 lorothiazi Med ical per tablet de 12.5 mg Bra nch tablet losartan-hy Yes losartan [place] drochloroth 2-06 50 ity of iazide 00:00: mg-hydroch [place] 50-12.5 mg 00 lorothiazi Med ical per tablet de 12.5 mg Bra nch tablet losartan- Yes losartan [place] drochloroth 2-06 50 ity of iazide 00:00: mg-hydroch [place] 50-12.5 mg 00 lorothiazi Med ical per tablet de 12.5 mg Bra nch tablet losartan- Yes losartan [place] drochloroth 2-06 50 ity of iazide 00:00: mg-hydroch [place] 50-12.5 mg 00 lorothiazi Med ical per tablet de 12.5 mg Bra nch tablet losartan- Yes losartan [place] drochloroth 2-06 50 ity of iazide 00:00: mg-hydroch [place] 50-12.5 mg 00 lorothiazi Med ical per tablet de 12.5 mg Bra nch tablet losartan- Yes losartan [place] drochloroth 2-06 50 ity of iazide 00:00: mg-hydroch [place] 50-12.5 mg 00 lorothiazi Med ical per tablet de 12.5 mg Bra nch tablet ALPRAZolam Yes alprazolam U nivers 0.25 mg 1-20 0.25 mg ity of tablet 00:00: tablet [facility] ALPRAZolam Yes alprazolam U nivers 0.25 mg 1-20 0.25 mg ity of tablet 00:00: tablet [facility] ALPRAZolam Yes alprazolam U nivers 0.25 mg 1-20 0.25 mg ity of tablet 00:00: tablet [facility] ALPRAZolam Yes alprazolam U nivers 0.25 mg 1-20 0.25 mg ity of tablet 00:00: tablet [facility] ALPRAZolam Yes alprazolam U nivers 0.25 mg 1-20 0.25 mg ity of tablet 00:00: tablet [place] [facility] ALPRAZolam Yes alprazolam U nivers 0.25 mg 1-20 0.25 mg ity of tablet 00:00: tablet [facility] ALPRAZolam ALPRAZolam No 1{table ALPRAZolam 0.25 MG 0.25 MG 1-20 t} 0.25 MG 00:00: 00 ALPRAZolam ALPRAZolam No 1{table ALPRAZolam 0.25 MG 0.25 MG 1-20 t} 0.25 MG 00:00: 00 Losartan Losartan Yes [place] 1 tablet Common Potassium-H Potassium-H 8-04 [facility] CTZ CTZ 00:00: - [facility] 00 [facility] Alprazolam Alprazolam Yes [place] 1 tablet Common 4-02 [facility] 00:00: - [facility] 00 [facility] Celexa Celexa Yes [place] 1 tablet Com mon 2-03 [facility] 00:00: - [facility] 00 [facility] SERTraline 2018-05 Yes [id number] 25mg Take 1 U nivers 25 mg 1-15 tablet by ity of tablet 00:00: mouth [place] 00 daily. Medical STOP Branch CITALOPRAM . triamcinolo 2018-05 Yes [id number] Apply to Univers ne 0.025 % 1-15 area(s) 2 ity of cream 00:00: (two) [place] 00 times Medical daily. Branch triamcinolo 2018-05 Yes [id number] Apply to Univers ne 0.025 % 1-15 area(s) 2 ity of cream 00:00: (two) [place] 00 times Medical daily. Branch triamcinolo 2018-05 Yes [id number] Apply to Univers ne 0.025 % 1-15 area(s) 2 ity of cream 00:00: (two) [place] 00 times Medical daily. Branch SERTraline 2018-05 Yes [id number] 25mg Take 1 U nivers 25 mg 1-15 tablet by ity of tablet 00:00: mouth [place] 00 daily. Medical STOP Branch CITALOPRAM . triamcinolo 2018-05 Yes [id number] Apply to Univers ne 0.025 % 1-15 area(s) 2 ity of cream 00:00: (two) [place] 00 times Medical daily. Branch triamcinolo 2018-05 Yes [id number] Apply to Univers ne 0.025 % 1-15 area(s) 2 ity of cream 00:00: (two) [place] 00 times Medical daily. Branch SERTraline 2018-05 Yes [id number] 25mg Take 1 U nivers 25 mg 1-15 tablet by ity of tablet 00:00: mouth [place] 00 daily. Medical STOP Branch CITALOPRAM . triamcinolo 2018-05 Yes [id number] Apply to Univers ne 0.025 % 1-15 area(s) 2 ity of cream 00:00: (two) [place] 00 times Medical daily. Branch SERTraline 2018-05 Yes [id number] 25mg Take 1 U nivers 25 mg 1-15 tablet by ity of tablet 00:00: mouth [place] 00 daily. Medical STOP Branch CITALOPRAM . triamcinolo 2018-05 Yes [id number] Apply to Univers ne 0.025 % 1-15 area(s) 2 ity of cream 00:00: (two) [place] 00 times Medical daily. Branch SERTraline 2018-05 Yes [id number] 25mg Take 1 U nivers 25 mg 1-15 tablet by ity of tablet 00:00: mouth [place] 00 daily. Medical STOP Branch CITALOPRAM . triamcinolo 2018-05 Yes [id number] Apply to Univers ne 0.025 % 1-15 area(s) 2 ity of cream 00:00: (two) [place] 00 times Medical daily. Branch SERTraline 2018-05- No [id number] 25mg Take 1 Univers 25 mg 1-15 12-27 tablet by ity of tablet 00:00: 00:00 mouth [place] 00 :00 daily. Medical STOP Branch CITALOPRAM . SERTraline 2018-05- No [id number] 25mg Take 1 Univers 25 mg 1-15 12-27 tablet by ity of tablet 00:00: 00:00 mouth [place] 00 :00 daily. Medical STOP Branch CITALOPRAM . esomeprazol Yes 20mg Take 20 mg Univers e 20 mg 9- by mouth ity of capsule 09:26: daily [place] 37 before a Medical meal. Branch Norethindrn Yes Take by Uni vers A-E - mouth. ity of Estradiol-I 09:26: [place] renato ( Medical ) 1 Branch mg-20 mcg (24)/75 mg (4) per tablet esomeprazol Yes 20mg Take 20 mg Univers e 20 mg 02-21 by mouth ity of capsule 09:26: daily [place] 37 before a Medical meal. Branch Norethindrn 2019-0 Yes Take by Uni vers A-E 02-21 mouth. ity of Estradiol-I 09:26: [place] renato ( FE ) 1 Branch mg-20 mcg (24)/75 mg (4) per tablet Yes [place] 1 tablet Common [facility] Nexium Nexium Yes [place] 1 capsule Comm on [facility] Citalopram Citalopram Yes [place] TAKE 1 Common Hydrobromid Hydrobromid [facility] TABLET BY Spirit e e MOUTH - [facility]I EVERY DAY [facility] CeleXA 40 CeleXA 40 No 1{table QD CeleXA 40 MG MG t} MG Citalopram Citalopram No Citalopram Hydrobromid Hydrobromid Hydrobromi e 40 MG e 40 MG de 40 MG NexIUM 20 NexIUM 20 No 1{capsu QD NexIUM 20 MG MG le} MG Losartan Losartan No 1{table QD Losartan Potassium-H Potassium-H t} Potassium- CTZ 50-12.5 CTZ 50-12.5 HCTZ MG MG 50-12.5 MG No 1{table QD 06-17 1-20 t} 24 1-20 MG-MCG(24) MG-MCG(24) MG-MCG(24) ALPRAZolam ALPRAZolam No 1{table ALPRAZolam 0.25 MG 0.25 MG t} 0.25 MG NexIUM 20 NexIUM 20 No 1{capsu QD NexIUM 20 MG MG le} MG Losartan Losartan No Losartan Potassium-H Potassium-H Potassium- CTZ 50-12.5 CTZ 50-12.5 HCTZ MG MG 50-12.5 MG Citalopram Citalopram No Citalopram Hydrobromid Hydrobromid Hydrobromi e 40 MG e 40 MG de 40 MG No 1{table QD 06-17 1-20 t} 24 1-20 MG-MCG(24) MG-MCG(24) MG-MCG(24) Citalopram Citalopram No Citalopram Hydrobromid Hydrobromid Hydrobromi e 40 MG e 40 MG de 40 MG Losartan Losartan No Losartan Potassium-H Potassium-H Potassium- CTZ 50-12.5 CTZ 50-12.5 HCTZ MG MG 50-12.5 MG No 1{table QD - 1-20 t} 24 1-20 MG-MCG(24) MG-MCG(24) MG-MCG(24) ALPRAZolam ALPRAZolam No 1{table ALPRAZolam 0.25 MG 0.25 MG t} 0.25 MG NexIUM 20 NexIUM 20 No 1{capsu QD NexIUM 20 MG MG le} MG NexIUM 20 NexIUM 20 No 1{capsu QD NexIUM 20 MG MG le} MG Meloxicam Meloxicam No Meloxicam No 1{table QD - 1-20 t} 24 1-20 MG-MCG(24) MG-MCG(24) MG-MCG(24) Phentermine Phentermine No 1{capsu QD Phentermin HCl 37.5 MG HCl 37.5 MG le} e HCl 37.5 MG Citalopram Citalopram No Citalopram Hydrobromid Hydrobromid Hydrobromi e 40 MG e 40 MG de 40 MG CeleXA 40 CeleXA 40 No 1{table QD CeleXA 40 MG MG t} MG Diclofenac Diclofenac No Diclofenac Losartan Losartan No 1{table QD Losartan Potassium-H Potassium-H t} Potassium- CTZ 50-12.5 CTZ 50-12.5 HCTZ MG MG 50-12.5 MG HYDROcodone HYDROcodone No HYDROcodon -Acetaminop -Acetaminop e-Acetamin hen hen ophen ALPRAZolam ALPRAZolam No 1{table ALPRAZolam 0.25 MG 0.25 MG t} 0.25 MG Losartan Losartan No Losartan Potassium-H Potassium-H Potassium- CTZ 50-12.5 CTZ 50-12.5 HCTZ MG MG 50-12.5 MG tiZANidine tiZANidine No 1{table TID tiZANidine HCl 4 MG HCl 4 MG t_as_ne HCl 4 MG eded} NexIUM 20 NexIUM 20 No 1{capsu QD NexIUM 20 MG MG le} MG Meloxicam Meloxicam No Meloxicam 24 No 1{table QD Fe 1-20 1-20 t} 24 1-20 MG-MCG(24) MG-MCG(24) MG-MCG(24) Phentermine Phentermine No 1{capsu QD Phentermin HCl 37.5 MG HCl 37.5 MG le} e HCl 37.5 MG tiZANidine tiZANidine No 1{table TID tiZANidine HCl 4 MG HCl 4 MG t_as_ne HCl 4 MG eded} Citalopram Citalopram No Citalopram Hydrobromid Hydrobromid Hydrobromi e 40 MG e 40 MG de 40 MG CeleXA 40 CeleXA 40 No 1{table QD CeleXA 40 MG MG t} MG Losartan Losartan No 1{table QD Losartan Potassium-H Potassium-H t} Potassium- CTZ 50-12.5 CTZ 50-12.5 HCTZ MG MG 50-12.5 MG HYDROcodone HYDROcodone No HYDROcodon -Acetaminop -Acetaminop e-Acetamin hen hen ophen ALPRAZolam ALPRAZolam No 1{table ALPRAZolam 0.25 MG 0.25 MG t} 0.25 MG Losartan Losartan No Losartan Potassium-H Potassium-H Potassium- CTZ 50-12.5 CTZ 50-12.5 HCTZ MG MG 50-12.5 MG Diclofenac Diclofenac No Diclofenac Meloxicam Meloxicam No Meloxicam NexIUM 20 NexIUM 20 No 1{capsu QD NexIUM 20 MG MG le} MG Losartan Losartan No 1{table QD Losartan Potassium-H Potassium-H t} Potassium- CTZ 50-12.5 CTZ 50-12.5 HCTZ MG MG 50-12.5 MG 24 No 1{table QD Fe 1-20 1-20 t} 24 1-20 MG-MCG(24) MG-MCG(24) MG-MCG(24) Losartan Losartan No Losartan Potassium-H Potassium-H Potassium- CTZ 50-12.5 CTZ 50-12.5 HCTZ MG MG 50-12.5 MG tiZANidine tiZANidine No 1{table TID tiZANidine HCl 4 MG HCl 4 MG t_as_ne HCl 4 MG eded} Phentermine Phentermine No 1{capsu QD Phentermin HCl 37.5 MG HCl 37.5 MG le} e HCl 37.5 MG CeleXA 40 CeleXA 40 No 1{table QD CeleXA 40 MG MG t} MG Diclofenac Diclofenac No Diclofenac HYDROcodone HYDROcodone No HYDROcodon -Acetaminop -Acetaminop e-Acetamin hen hen ophen Citalopram Citalopram No Citalopram Hydrobromid Hydrobromid Hydrobromi e 40 MG e 40 MG de 40 MG Meloxicam Meloxicam No Meloxicam NexIUM 20 NexIUM 20 No 1{capsu QD NexIUM 20 MG MG le} MG No 1{table QD 1- 1-20 t} 24 1-20 MG-MCG(24) MG-MCG(24) MG-MCG(24) Losartan Losartan No Losartan Potassium-H Potassium-H Potassium- CTZ 50-12.5 CTZ 50-12.5 HCTZ MG MG 50-12.5 MG CeleXA 40 CeleXA 40 No 1{table QD CeleXA 40 MG MG t} MG Phentermine Phentermine No 1{capsu QD Phentermin HCl 37.5 MG HCl 37.5 MG le} e HCl 37.5 MG HYDROcodone HYDROcodone No HYDROcodon -Acetaminop -Acetaminop e-Acetamin hen hen ophen Losartan Losartan No 1{table QD Losartan Potassium-H Potassium-H t} Potassium- CTZ 50-12.5 CTZ 50-12.5 HCTZ MG MG 50-12.5 MG Diclofenac Diclofenac No Diclofenac tiZANidine tiZANidine No 1{table TID tiZANidine HCl 4 MG HCl 4 MG t_as_ne HCl 4 MG eded} Citalopram Citalopram No Citalopram Hydrobromid Hydrobromid Hydrobromi e 40 MG e 40 MG de 40 MG tiZANidine tiZANidine No 1{table TID tiZANidine HCl 4 MG HCl 4 MG t_as_ne HCl 4 MG eded} CeleXA 40 CeleXA 40 No 1{table QD CeleXA 40 MG MG t} MG NexIUM 20 NexIUM 20 No 1{capsu QD NexIUM 20 MG MG le} MG No 1{table QD Fe 1-20 1-20 t} 24 1-20 MG-MCG(24) MG-MCG(24) MG-MCG(24) Losartan Losartan No 1{table QD Losartan Potassium-H Potassium-H t} Potassium- CTZ 50-12.5 CTZ 50-12.5 HCTZ MG MG 50-12.5 MG Losartan Losartan No Losartan Potassium-H Potassium-H Potassium- CTZ 50-12.5 CTZ 50-12.5 HCTZ MG MG 50-12.5 MG HYDROcodone HYDROcodone No HYDROcodon -Acetaminop -Acetaminop e-Acetamin hen hen ophen Meloxicam Meloxicam No Meloxicam Citalopram Citalopram No Citalopram Hydrobromid Hydrobromid Hydrobromi e 40 MG e 40 MG de 40 MG Phentermine Phentermine No 1{capsu QD Phentermin HCl 37.5 MG HCl 37.5 MG le} e HCl 37.5 MG Diclofenac Diclofenac No Diclofenac ALPRAZolam ALPRAZolam No 1{table ALPRAZolam 0.25 MG 0.25 MG t} 0.25 MG CeleXA 40 CeleXA 40 No 1{table QD CeleXA 40 MG MG t} MG NexIUM 20 NexIUM 20 No 1{capsu QD NexIUM 20 MG MG le} MG Meloxicam Meloxicam No Meloxicam 24 No 1{table QD -20 1-20 t} 24 1-20 MG-MCG(24) MG-MCG(24) MG-MCG(24) Phentermine Phentermine No 1{capsu QD Phentermin HCl 37.5 MG HCl 37.5 MG le} e HCl 37.5 MG Citalopram Citalopram No Citalopram Hydrobromid Hydrobromid Hydrobromi e 40 MG e 40 MG de 40 MG CeleXA 40 CeleXA 40 No 1{table QD CeleXA 40 MG MG t} MG Diclofenac Diclofenac No Diclofenac Losartan Losartan No 1{table QD Losartan Potassium-H Potassium-H t} Potassium- CTZ 50-12.5 CTZ 50-12.5 HCTZ MG MG 50-12.5 MG HYDROcodone HYDROcodone No HYDROcodon -Acetaminop -Acetaminop e-Acetamin hen hen ophen ALPRAZolam ALPRAZolam No 1{table ALPRAZolam 0.25 MG 0.25 MG t} 0.25 MG Losartan Losartan No Losartan Potassium-H Potassium-H Potassium- CTZ 50-12.5 CTZ 50-12.5 HCTZ MG MG 50-12.5 MG tiZANidine tiZANidine No 1{table TID tiZANidine HCl 4 MG HCl 4 MG t_as_ne HCl 4 MG eded} Citalopram Citalopram No Citalopram Hydrobromid Hydrobromid Hydrobromi e 40 MG e 40 MG de 40 MG NexIUM 20 NexIUM 20 No 1{capsu QD NexIUM 20 MG MG le} MG Losartan Losartan No 1{table QD Losartan Potassium-H Potassium-H t} Potassium- CTZ 50-12.5 CTZ 50-12.5 HCTZ MG MG 50-12.5 MG CeleXA 40 CeleXA 40 No 1{table QD CeleXA 40 MG MG t} MG 24 Fe 24 No 1{table QD Fe 1-20 1-20 t} 24 1-20 MG-MCG(24) MG-MCG(24) MG-MCG(24) Vital Signs Vital Name Observation Time Observation Value Comments Source height 2022-07-27 13:50:00 69 [in_i] [facility] weight 2022-07-27 13:50:00 183.3 [lb_av] [facility] temperature 2022-07-27 13:50:00 97.7 [degF] [facility] bmi 2022-07-27 13:50:00 27.07 kg/m2 [facility] oximetry 2022-07-27 13:50:00 99 % [facility] respiratory rate 2022-07-27 13:50:00 18 /min Comm on [facility] blood pressure 2022-07-27 13:50:00 127 mm[Hg] Common [facility] - systolic [facility] blood pressure 2022-07-27 13:50:00 72 mm[Hg] [facility] - diastolic [facility] Systolic blood 2022-05-17 16:24:00 146 mm[Hg] Univer sity of pressure [facility] Diastolic blood 2022-05-17 16:24:00 92 mm[Hg] Unive rsity of pressure [facility] Heart rate 2022-05-17 16:24:00 81 /min [facility] of [facility] Body height 2022-05-17 16:24:00 175.3 cm [facility] Body weight 2022-05-17 16:24:00 86.637 kg [facility] BMI 2022-05-17 16:24:00 28.21 kg/m2 [facility] Oxygen saturation in 2022-05-17 16:24:00 98 /min University of Arterial blood by [facility] Pulse oximetry Branch Systolic blood 2022-05-03 16:24:00 134 mm[Hg] Univer sity of pressure [facility] Diastolic blood 2022-05-03 16:24:00 89 mm[Hg] Unive rsity of pressure [facility] Heart rate 2022-05-03 16:24:00 82 /min [facility] Body height 2022-05-03 16:24:00 175.3 cm [facility] Body weight 2022-05-03 16:24:00 83.915 kg Universi ty of [facility] BMI 2022-05-03 16:24:00 27.32 kg/m2 [facility] Oxygen saturation in 2022-05-03 16:24:00 99 /min [facility] Arterial blood by [facility] Pulse oximetry Branch height 2022-03-28 16:20:00 69 [in_i] [facility] weight 2022-03-28 16:20:00 190 [lb_av] [facility] temperature 2022-03-28 16:20:00 98 [degF] [facility] bmi 2022-03-28 16:20:00 28.06 kg/m2 Common S pirit [facility] blood pressure 2022-03-28 16:20:00 120 mm[Hg] [facility] - systolic [facility] blood pressure 2022-03-28 16:20:00 70 mm[Hg] [facility] - diastolic [facility] height 2022-02-17 15:00:00 69 [in_i] Common [facility] weight 2022-02-17 15:00:00 191.8 [lb_av] Common [facility] temperature 2022-02-17 15:00:00 98.0 [degF] Common S [facility] bmi 2022-02-17 15:00:00 28.32 kg/m2 [facility] oximetry 2022-02-17 15:00:00 99 % [facility] respiratory rate 2022-02-17 15:00:00 18 /min Comm on [facility] blood pressure 2022-02-17 15:00:00 118 mm[Hg] Common [facility] - systolic [facility] blood pressure 2022-02-17 15:00:00 77 mm[Hg] [facility] - diastolic [facility] bmi 2021-06-17 13:50:00 28.06 kg/m2 Common S [facility] blood pressure 2021-06-17 13:50:00 125 mm[Hg] Common [facility] - systolic [facility] blood pressure 2021-06-17 13:50:00 72 mm[Hg] Common [facility] - diastolic [facility] height 2021-06-17 13:50:00 69 [in_i] Common [facility] weight 2021-06-17 13:50:00 190 [lb_av] [facility] temperature 2021-06-17 13:50:00 97.3 [degF] [facility] Procedures Procedure Date / Time Performed Performing Clinician [facility] e ASSIGNMENT OF BENEFITS 2022-05-03 16:12:29 Doctor Unassigned, No [facility] Name Medical Branch REFERRAL- 2022-04-12 06:01:00 Doctor Unassigned, No [facility] REQUEST/RESPONSE Name Medical Branch Encounters Start End Encounter Admission Attending Care Care Encounter Source Date/Time Date/Time Type Type Clinicians Facility Department ID 2022-07-27 Outpatient Valera, STLMLC STLMLC [id number] Common 08:50:00 Cabrera [id number] [facility] 2022-03-24 Outpatient Valera, STLMLC STLMLC [id number] Common 10:28:00 Cabrera [id number] [facility] 2021-06-23 Outpatient Valera, STLMLC STLMLC [id number] Common 14:01:41 Cabrera [id number] [facility] 2021-06-23 Outpatient Valera, STLMLC STLMLC [id number] Common 13:36:29 Cabrera [id number] [facility] 2021-06-23 Outpatient Valera, STLMLC STLMLC [id number] Common 13:16:58 Cabrera [id number] [facility] 2021-06-23 Outpatient Valera, STLMLC STLMLC [id number] Common 13:06:58 Cabrera [id number] [facility] 2021-06-23 Outpatient Valera, STLMLC STLMLC [id number] Common 12:32:48 Cabrera [id number] [facility] 2021-06-23 Outpatient Valera, STLMLC STLMLC [id number] Common 12:31:58 Cabrera [id number] [facility] 2021-06-23 Outpatient Valera, STLMLC STLMLC [id number] Common 12:09:06 Cabrera [id number] [facility] 2021-06-23 Outpatient Valera, STLMLC STLMLC [id number] Common 11:16:32 Cabrera [id number] [facility] 2021-06-23 Outpatient Valera, STLMLC STLMLC [id number] Common 11:04:54 Cabrera [id number] [facility] 2020-10-03 Outpatient DE[facility]DRA, [facility] [id number] [place] 02:55:06 ELSI [facility] 2019-07-23 Inpatient NELL Dooley, [facility] [id number] [facility] 13:30:00 [facility]adumo [facility] 2022-07-27 2022-07-27 [facility] [id number] Co mmon 00:00:00 00:00:00 VISIT Spirit ESTAB PT - CHI LEVEL 4 [facility] 2022-06-14 2022-06-14 (TEL) [facility] [id number] Co mmon 00:00:00 00:00:00 Spirit - CHI [facility] 2022-05-25 2022-05-25 Telephone Glen [facility] [id number] Univers 00:00:00 00:00:00 [facility] [id number] [place] [id number] Luis as WINTER?BLEA [phone] [address] OFFICE [facility] 2022-05-17 2022-05-17 [facility] [id number] Univers 10:00:00 10:46:15 Visit [facility] [id number] [place] [id number] Luis as WINTER?BLEA [phone] [address] OFFICE [facility] 2022-05-17 2022-05-17 Outpatient [facility] [id number] Univers 10:00:00 10:46:15 MANUEL CARROLL [facility] 2022-05-15 2022-05-15 Outpatient [facility] [id number] Univers 13:37:29 23:59:00 MANUEL CARROLL [facility] 2022-05-15 2022-05-15 [facility] [id number] Univers 13:37:29 23:59:00 Encounter Manuel [facility] [id number] ity of [facility] [id number] [phone] Co [address] 2022-05-03 2022-05-03 Outpatient [facility] [id number] Univers 10:00:00 11:18:35 MANUEL CARROLL ity of [facility] 2022-05-03 2022-05-03 Office Glen [facility] [id number] Univers 10:00:00 11:18:35 Visit [facility] [id number] ity of [facility] [id number] Luis as WINTER?BLEA [phone] [address] MEDICAL OFFICE [facility] 2022-05-03 2022-05-03 Orders Doctor STACEY [id number] Univers 00:00:00 00:00:00 Only Unassigned, ROBIN [id number] ity of [place] [facility] [id number] Luis as [phone] [address] 2022-04-12 2022-04-12 Orders Doctor IBARRA [id number] Univers 00:00:00 00:00:00 Only Unassigned, ROBIN [id number] ity of [place] [facility] [id number] Luis as [phone] [address] 2022-03-28 2022-03-28 OFFICE STLC STLC [id number] Co mmon 00:00:00 00:00:00 VISIT Spirit ESTAB PT - CHI LEVEL 4 [facility] 2022-03-22 2022-03-22 (TEL) STLMLC STLMLC [id number] Co mmon 00:00:00 00:00:00 [facility] 2022-02-17 2022-02-17 PREV VISIT STLMLC STLMLC [id number] Common 00:00:00 00:00:00 EST AGE [facility] 18-39 - CHI [facility] 2022-01-17 2022-01-17 (TEL) STLMLC STLMLC [id number] Co mmon 00:00:00 00:00:00 [facility] 2021-08-18 2021-08-18 (TEL) STLMLC STLMLC [id number] Co mmon 00:00:00 00:00:00 [facility] 2021-06-28 2021-06-28 (TEL) STLMLC STLMLC [id number] Co mmon 00:00:00 00:00:00 [facility] 2021-06-17 2021-06-17 OFFICE STLMLC STLMLC [id number] Co mmon 00:00:00 00:00:00 VISIT EST Spir it PT LEVEL 3 [facility] 2021-02-10 2021-02-10 Outpatient STLMLC STLMLC [id number] Common 00:00:00 00:00:00 [facility] 2021-01-28 2021-01-28 Outpatient STLMLC STLMLC [id number] Common 00:00:00 00:00:00 [facility] 2020-12-28 2020-12-28 Outpatient STLMLC STLMLC [id number] Common 00:00:00 00:00:00 [facility] 2020-11-24 2020-11-24 Outpatient STLMLC STLMLC [id number] Common 00:00:00 00:00:00 [facility] 2020-11-16 2020-11-16 Outpatient STLMLC STLMLC [id number] Common 00:00:00 00:00:00 [facility] 2020-11-16 2020-11-16 Outpatient STLMLC STLMLC [id number] Common 00:00:00 00:00:00 [facility] 2020-11-16 2020-11-16 Outpatient STLMLC STLMLC [id number] Common 00:00:00 00:00:00 [facility] 2020-11-16 2020-11-16 Outpatient STLMLC STLMLC [id number] Common 00:00:00 00:00:00 [facility] 2020-10-21 2020-10-21 Office MICHELLE Trujillo [facility] [id number] [place] 15:16:13 16:20:28 Visit [facility] [id number] [facility] [id number] [facility] [id number] 1 2020-10-21 2020-10-21 Office MICHELLE Trujillo [facility] [id number] 15:16:13 16:20:[address] [facility] [id number] [facility] [id number] [facility] [id number] 1 2020-10-20 2020-10-20 Outpatient STLMLC STLMLC [id number] Common 00:00:00 00:00:00 [facility] 2020-07-22 2020-07-22 Outpatient STLMLC STLMLC [id number] Common 00:00:00 00:00:00 [facility] 2020-04-28 2020-04-28 Outpatient STLMLC STLMLC [id number] Common 00:00:00 00:00:00 [facility] 2020-01-28 2020-01-28 [id number] Common 15:30:00 15:30:[address] [facility] 2019-12-31 2019-12-31 [facility] [id number] Common 16:15:00 16:15:[address] [facility] 2019-11-27 2019-11-27 [facility] [id number] Common 15:00:00 15:00:[address] [facility] 2019-11-11 2019-11-11 [facility] [id number] Common 10:00:00 10:00:[address] [facility] 2019-10-22 2019-10-22 [facility] [id number] Common 08:33:00 08:33:00 t [facility] [address] [facility] 2019-10-16 2019-10-16 [facility] [id number] Common 14:00:00 14:00:00 t [facility] [address] [facility] 2019-10-16 2019-10-16 [facility] [id number] Common 10:15:00 10:15:[address] [facility] 2019-10-09 2019-10-09 [facility] [id number] Common 14:11:00 14:11:00 t [facility] [address] [facility] 2019-09-30 2019-09-30 [facility] [id number] Common 13:00:00 13:00:00 t [place] [address] [facility] 2019-08-29 2019-08-29 [facility] [id number] Common 13:00:00 13:00:00 [address] [facility] 2019-08-28 2019-08-28 Outpatient Indy Indyt [id number] Common 11:17:00 11:17:00 t [facility] [address] [facility] 2019-07-03 2019-07-03 [facility] [id number] 00:00:00 00:00:00 [facility] [id number] [place] [id number] [facility] [phone] nal [address] 2019-07-01 2019-07-01 Outpatient Indy [facility] [id number] Common 09:00:00 09:00:[address] [facility] Results Test Description Test Time Test Comments Results Result [facility] e Comments PERITONEUM,BIOPSY 2019-07-24 12:53:00 --------RUN DATE: 07/24/19 [facility] PAGE 1 RUN TIME: 1828 Specimen Inquiry RUN USER: INTERFACE --------[id number] #: [id number] AGE/SX: 38/F ROOM: [facility] RE07/23/19REG DR: Fadumo Dooley MD : 82 BED: A DIS: 07/24/19 STATUS: DIS Efrain TLOC: -------- SPEC #: [id number] RECD: 07/23/19 STATUS: LANCE SETH #: [id number] ALEE: 07/23/19- SUBM DR: Fadumo Dooley MD ENTERED: 07/23/19-1100 SP TYPE: PERITBX OTHR DR: ORDERED: LEVEL IV/6 CODES: [id number] - PERITONEUM, NOS PROCEDURES: LEVEL IV (Incomplete) [...] tube - benign paratubal cyst CPT code(s): 22673 x5, 14484 cds/wpd 07/24/19 CONTINUED ON NEXT PAGE --------RUN DATE: 07/24/19 [facility] PAGE 2 RUN TIME: 1828 Specimen Inquiry RUN USER: INTERFACE --------SPEC #: [id number] PATIENT: MARKUS ARSHAD SAMUEL #[id number] (Continued) GROSS DESCRIPTION ANATOMIC SOURCE OF TISSUE [...] Specimen Inquiry RUN USER: INTERFACE --------SPEC #: [id number] PATIENT: MARKUS ARSHAD SAMUEL #[id number] (Continued) GROSS DESCRIPTION (Continued) Section code: F1 - cervix, F2 - anterior endomyometrium, F3 - posterior endomyometrium, F4 - additional endometrium and nodules, F5 - airport representative sections of right fallopian tube, and F6 - airport representative sections of left fallopian tube. tylor/blanche 07/23/19 Signed Jermain Farrar 07/24/19 1253 -------- END OF REPORT HGB HCT 2019-07-24 05:18:00 Test Item Value Reference Range Interpretation Comme nts HEMOGLOBIN (test code = HGB) 10.7 g/dL 10.7-13.9 N HEMATOCRIT (test code = HCT) 33.4 % 32.1-42.1 N UR HCG [id number] 07:35:00 Test Item Value Reference Range Interpretation [...] hours later and tested. AG HEPATITIS B [id number] 16:15:00 Test Item Value Reference Range Interpretation Comments AG HEPATITIS B SURFACE (test code NONREACTIVE NONREACTIVE = HBSAG) IS CONSENT FORM SIGNED FOR HIV TESTING? YAB HEPATITIS C [id number] 16:15:00 Test Item Value Reference Range Interpretation Comments AB HEPATITIS C (test code = NONREACTIVE NONREACTIVE HCVAB) SIGNAL TO CUTOFF (test code = 0.15 <0.80 N CUTOFF) IS CONSENT FORM SIGNED FOR HIV TESTING? YAB HIV 1 16:15:00 Test Item Value Reference Range Interpretation Comments AB HIV 1 2 (test NONREACTIVE NONREACTIVE Done by [facility] code = REU19UH) 4th Gen HIV Ag/Ab Combo Screen IS CONSENT FORM SIGNED FOR HIV TESTING? YAG HEPATITIS B [id number] 15:40:00 Test Item Value Reference Range Interpretation Comments AG HEPATITIS B SURFACE (test code NONREACTIVE NONREACTIVE = HBSAG) IS CONSENT FORM SIGNED FOR HIV TESTING? YAB HEPATITIS C [id number] 15:40:00 Test Item Value Reference Range Interpretation Comments AB HEPATITIS C (test code = HCVAB) NONREACTIVE SIGNAL TO CUTOFF (test code = CUTOFF) <0.80 IS CONSENT FORM SIGNED FOR HIV TESTING? MOJGANB HIV 1 15:40:00 Test Item Value Reference Range Interpretation Comments AB HIV 1 2 (test code = TOG09MR) NONREACTIVE IS CONSENT FORM SIGNED FOR HIV TESTING? YHCG SERUM [id number] 15:20:00 Test Item Value Reference Range Interpretation Comments HCG SERUM QUAL (test code = HCGQL) NEGATIVE URINALYSIS [id number] 15:17:00 Test Item Value Reference Range Interpretation [...] NONE SEEN URINE SAMPLE: CLEAN CATCHCBC W/AUTO [id number] 15:01:00 Test Item Value Reference Range Interpretation [...] REQUIRED (test NORMAL NORMAL code = PLTMR) Notes Date/Time Note Provider Source 2019-07-26 10:06:00 [id number] [facility] [address] [place], [place] [address] PATIENT NAME: PAM ARSHAD ADMIT DATE: 07/23/19ACCOUNT NO: [id number] ROOM NO: [id number] AGE: 38 SEX: F ADMITTING PHYSICIAN: Fadumo Dooley MD ATTENDING PHYSICIAN: Fadumo Dooley MD OPERATION DATE: 07/23/2019 PREOPERATIVE DIAGNOSES:1. Pelvic pain.2. Menorrhagia. POSTOPERATIVE DIAGNOSES:1. Pelvic pain.2. Menorrhagia.3. Endometriosis. PROCEDURES:1. Robotically assisted total laparoscopic hysterectomy with bilateralsalpingectomy.2. Robotically assisted laparoscopic excision of endometriosis.3. Robotically assisted laparoscopic lysis of adhesions. SURGEON: Fadumo Dooley MD PAINTER AND DECORATOR: [place] ANESTHESIA: General. ESTIMATED BLOOD LOSS: 25 mL . INTRAVENOUS FLUIDS: 500 mL. URINE OUTPUT: 400 mL of clear urine. COMPLICATIONS: None. COUNTS: Correct. FINDINGS: An 8-week size uterus. Normal tubes and ovaries bilaterally.Endometrial implants on the left pelvic sidewall, posterior cul-de-sac, rightposterior cul-de-sac, right pelvic sidewall and right perirectal area.Normal-appearing upper abdomen. INDICATIONS : The patient is a 38-year-old 1, para 1, who presented withmenorrhagia and pelvic pain. The patient was tried on medical treatment but she continued with severe pelvic pain. Risks, benefits, and alternatives werediscussed with th e patient. The patient agreed to above-named procedures. PATIENT NAME: MARKUS ARSHAD PROCEDURE IN DETAIL: The patient was taken the OR with IV in place. She wasinduced under general anesthesia without difficulty. The patient was placed indorsal lithotomy position. She was prepped and draped i n the usual sterilemanner. The patient was given Ancef preoperatively for prophylaxis as well asLovenox 40 mg subcutaneously for DVT prophylaxis. Rodrigues catheter was placed inthe bladder. Anterior lip of the cervix was grasped with single-toothtenaculum. Uterus was gently sounded to 8 cm. Cervix was then gently dilatedfrom size 9 to size 15 using Mathew dilators. Stay sutures of 0 Prolene wereplaced a t 3 o'clock and 9 o'clock. An 8-cm DINORAH uterine manipulator, 3.5 cmcolpotomizer ring, and vagina l occluder were then placed in the uterus, on thecervix, and in the vagina respectively and these were attached to stay sutures. The patient was then placed flat. Attention was then turned to the abdomen. A vertical incision was made through the umbilicus. With the abdomen tented up, the Veress needle was passed through what wa s felt to be fascia and peritoneum. Hanging drop test was within normal limits. CO2 gas was then used to insufflate the abdomen with pressure limit set at 20 mmHg. After pressure limit was achieved, the Veress needle was removed, 8-mm bladeless trocar was inserted easily, and laparoscope confirmed safe entry. The patient wa s then placed in Trendelenburg. Survey of the uppe r abdomen was within normal limits. Survey of the pelvis revealed approximately 8-week size uterus with normal tubes and ovaries bilaterally. Endometrial implants were noted in the posterior compartment. Three ancillary ports were then placed under direct visualization, one in the right lower quadrant, one in the left lower quadrant, and AirSeal port in the left upper quadrant, all were 8-mm ports. Pressure limit wa s then dropped to 15 mmHg. Robot was docked. Fenestrated bipolar instrument was placed in the left lower quadrant and monopolar scissors were placed in right lower quadrant. The patient has been pretreated with IV Benadryl. ICG dye was injected intravenously. Pelvis was then inspecte d under Firefly mode and implants were again noted on the left pelvic sidewall, posterior cul-de-sac, right pelvic sidewall, and in the right perirectal area. Some bowel adhesions were noted near the left pelvic brim and were lysed prior to excising the endometrial implants.Attention was then turned to the lesion s on the left pelvic sidewall. Ureter was carefull y identified. Incision was made in the peritoneum. Hydrodissection was performed. Endometrial implants were then carefully circumscribed and carefully excised using monopolar scissors. Attention was then turned to the posterior cul-de-sac. Rectum was carefully identified Lesions in the posterior cul-de-sac were carefully circumscribed and carefully excised using monopolar scissors. Lesions in the right posterior cul-de-sac were also excised in a similar fashion. Attention was then turned to th e right pelvic sidewall. Right pelvic sidewall was inspected and ureter was carefully identified. Incision was then made in the peritoneum. Hydrodissection was performed. Peritoneum was then carefully circumscribed and carefully excised to include the endometrial lesions. Lesions that were noted in the right perirectal area were also carefully excised with extreme care to avoid injuring colon. At this point, no other obvious lesions were noted. Attention was then turned to the left round ligament. Left round ligament was cauterized using bipolar instrument, then divided using monopolar scissors. Left fallopian tube was elevated and mesosalpinx was incised from the fimbriated end to the cornual area. Left utero-ovarian ligament was then cauterized using bipolar instrument, then divided using monopolar scissors. Bladder was then back filled. Anterior leaf of the peritoneum was then incised and carried out medially to develop the bladder flap. Bladder wa s dissected off lower uterine segment. Uterine vessels were skeletonized on the left side by incising posterior peritoneum. Uterine vessels were then PATIENT NAME: MARKUS ARSHAD SAMUEL cauterized at the level of the internal cervical os. Attention was then turned to the right side. Right round ligament wascauterized using bipolar instrument, then divided using monopolar scissors.Right fallopian tube was elevated and mesosalpinx was incised from thefimbriated end to the cornual area. Righ t utero-ovarian ligament was thencauterized using bipolar instrument, then divided using monopolar scissors.Anterior leaf of the peritoneum was the n incised and carried out medially tomeet the othe r side. Bladder was additionally dissected off the uterine segmenton the right side. Uterine vessel s were then skeletonized on the right side byincising posterior peritoneum. Uterine vessels were then cauterized at thelevel of internal cervical os. After assuring that the bladder was welldissected off lower uterine segment, colpotomy was performed at thecervicovaginal junction anteriorly from 10 o'clock to 2 o'clock . Uterinevessels were again encountered on the right side. Uterine vessels were thencauterized using bipolar instrument, then divided using monopolar scissors.Colpotomy was continued posteriorly over to the left side. The left uterinevessels were again encountered and were cauterized using bipolar instrument andthen divided using monopolar scissors. Colpotomy was completed. Uterus as wellas bilateral tubes were delivered through the vagina. A 0 V-Loc suture x 2 wasintroduced in the pelvis. Vaginal cuff was then closed in a running fashion,first from the left apex over to the right apex. A second sutur e was started onright apex and ran over to the lef t apex to overlap completely. Sutures werecut flus h with the cuff. Pelvis was then thoroughly irrigated. Pelvis waschecked under low pressure. Good hemostasis was noted. Ureters were identifiedbilaterally with good peristalsis noted. All needles were removed. Allinstruments removed. Robot was undocked. Pneumoperitoneum wa s evacuated.Trocars were removed. Umbilical port site fascia was closed using 0 Vicrylinterrupted suture. Skin was closed using 4-0 Vicryl interrupted suture andsealed with Dermabond. A 0.25% Marcaine was injected in all port sites.Speculum exam of the vagina was performed and the cuff was noted be hemostaticand no vaginal lacerations were noted. Throughout the case, [place] acted as customer service assistant. He provided protection and retraction. He performed suction for visualization. Heparticipated in positioning the patient as well as closure of th e wounds.Without his assistance, the surgery could not been performed safely or toadequately accepted medical standards. Therefore, his assistance was consideredmedically indicated and necessary. Dictated By: Fadumo Dooley MD WT: OP:F.BECCA/BETSY./NTSDD: 07/26/2019 10:06:21DT: 07/26/2019 10:59:06Conf#: [id number]/DID#: [id number] Authenticated and Edited by Fadumo Dooley MD On 07/26/19 2:00:16 PM at 1401 PATIENT NAME: MARKUS ARSHAD [id number]:[id number] i lable for patient [id number]:01:57 2019-07-24 08:35:00 [id number]:35:00 [facility] ([facility])Gynecology Post Prog NoteREPORT#:[id number] REPORT STATUS: SignedDATE:07/24/19 TIME: 834 PATIENT: MARKUS ARSHAD UNIT #: [id number]#: [id number] [address] [birth year] AGE : 38 SEX: F ATTEND: Fadumo Dooley MDADM AUTHOR: Fadumo Dooley MD * ALL edits or amendments must be made on the electronic/computer document * GeneralPost-op: day 1Status post:RATLHBS, EOE SubjectiveComments:Pt doing well. Caryn reg diet. Pain controlled. Voiding and amb well. Ready to go home. Objective GeneralVS/I O:Last Documented : Result Date Time Pulse Ox 99 07/24 0746 B/P 136/82 07/24 0746 B/P Mean 99.8 07/24 0746 Temp 99.0 07/24 0746 Pulse 62 07/24 0746 Resp 18 02 6 0746 O2 Delivery Room air 07/24 0350 O2 Flow Rat e 10.046526 07/23 1052 24 hour I O ending at 0700: 07/24 0700 07/23 1900 Intake Total 1550.00 1160.00 Output Total 800 1375 Balance 750.00 -215.00 Intake, IV 550.00 1150.00 Intake, Oral 1000 10 Number Voids 3 Output, 25 Estimated Blood Loss Output, Urine 800 1350 Patient 94.4 k g Weight Weight Standing scale Measurement Method Patient Weight Weight (lb): 208Weight (oz): 1.86Weight (kg): 94.400 Physical ExamGeneral appearance: alert, awakeWound/incision: Location:abd Site condition: edges approximated , incision intact, no drainage, no ecchymosisAbdomen: normal bowel sounds, soft, no distention ResultsFindings/Data:Laboratory Tests 07/24 0445 Hematology Hgb (10.7 - 13.9 g/dL) 10. 7 Hct (32.1 - 42.1 %) 33.4 Diagnosis, Assessment PlanFree Text A P:Doing well. HD stable. Good GI fxn and U/O. Plan: PO pain medsD/C pt home Precautions given at 0836 RPT #:[id number] OF REPORT PRProgress [id number]:35:00F.[id number] l [facility] [id number]:37:04
[2023-04-23] MEDS ORDERED: PROMETHAZINE 25 MG TABLET ONE (23:28)
[2023-04-23] MEDS ORDERED: CODEINE 30MG/APAP 300MG TAB ONE (23:29)
[2023-04-23] MEDS ORDERED: KETOROLAC 30 MG/ML INJ ONE (23:29)
[2023-04-23 23:46] LABS: Absolute Lymphocytes (CBC) 1.6 K/uL (0.7-4.9); Hematocrit 40.8 % (36.0-45.0); Lymphocytes % 16.9 % (15.3-44.8); MCV 100.5 fL (80-100); MPV 7.8 fL (7.6-11.3); Platelets 279 thou/uL (152-406); RBC Red Blood Cell Count 4.06 M/uL (3.86-4.86)
[2023-04-24] LABS: Albumin 3.5 g/dL (3.4-5.0); Bilirubin Direct 0.2 mg/dL (0-0.2); Bilirubin Indirect, Calculated 0.3 mg/dL (0.2-0.8); Bilirubin Total 0.5 mg/dL (0.2-1.0); Potassium 3.2 mEq/L (3.5-5.1); Protein, Total 8.1 g/dL (6.4-8.2)
[2023-04-24 00:31] LABS: SARS-COV-2 RT PCR NEGATIVE (NEGATIVE)
--- NOTE | 2023-04-24 00:47 | EDPHYS ---
Physician Documentation [facility] Name: Brii Jackson Age: 42 yrs Sex: Female : 1980 Arrival Date: 04/23/2023 Time: 20:55 Bed 19 Private MD: ED Physician Jordon Brandt HPI: 04/23 21:38 This 42 yrs old Female presents to ER via Unassigned with complaints of Pain, sp4 Cough, Congestion. 04/24 00:37 42-year-old female presents with 1 week of cough pleuritic chest pain, nonproductive sp4 cough sore throat and feeling unwell overall. Right-sided pain associated with cough. Patient denied fevers or vomiting. . 00:53 PMH - Nexium Oral; Xanax Oral; hydrocodone; losartan-hydrochlorothiazide sp4 cyclobenzaprine Oral PMHx: Anxiety; GERD; Depression; Hypertension; chronic back pain PSHx: Hysterectomy; gastric sleeve; breast augmentation; abdominoplasty; . Historical: - Allergies: 04/23 21:48 No Known Allergies; pf1 - PMHx: 21:48 chronic back pain; Anxiety; Depression; GERD; Hypertension; pf1 - PSHx: 21:48 back sx; breast augmentation; gastric sleeve; hysterectomy; Tummy tuck; pf1 21:48 left shoulder; pf1 - Immunization history:: Adult Immunizations up to date, Client reports having NOT received the Covid vaccine. Last tetanus immunization: < 5 years ago Flu vaccine is not up to date. - Social history:: Smoking status: Patient reports the use of cigarette tobacco products, smokes one pack cigarettes per day. Patient uses alcohol, occasionally. Patient/guardian denies using street drugs. - Family history:: not pertinent. ROS: 04/24 00:37 Constitutional: Negative for fever, chills, and weight loss, positive cough, positive sp4 for right-sided pleuritic chest pain, positive clear sputum, positive feeling unwell All other systems are negative, Exam: 00:37 Constitutional: This is a well developed, well nourished patient who is awake, alert, sp4 and in no acute distress. Head/Face: Normocephalic, atraumatic. Eyes: Pupils equal round and reactive to light, extra-ocular motions intact. Lids and lashes normal. Conjunctiva and sclera are not injected. Cornea within normal limits. Periorbital areas with no swelling, redness, or edema. ENT: Nares patent. No nasal discharge, no septal abnormalities noted. Tympanic membranes are normal and external auditory canals are clear. Oropharynx with no redness, swelling, or masses, exudates, or evidence of obstruction, uvula midline. Mucous membranes moist. Neck: Trachea midline, no thyromegaly or masses palpated, and no cervical lymphadenopathy. Supple, full range of motion without nuchal rigidity, or vertebral point tenderness. Chest/axilla: Normal chest wall appearance and motion. Nontender with no deformity. No lesions are appreciated. Cardiovascular: Regular rate and rhythm with a normal S1 and S2. No gallops, murmurs, or rubs. Normal PMI, no JVD. No pulse deficits. Respiratory: Lungs have equal breath sounds bilaterally, clear to auscultation and percussion. No rales, rhonchi or wheezes noted. No increased work of breathing, no retractions or nasal flaring. Abdomen/GI: Soft, non-tender, with normal bowel sounds. No distension or tympany. No guarding or rebound. No evidence of tenderness throughout. Back: No spinal tenderness. No costovertebral tenderness. Skin: Warm, dry with normal turgor. Normal color with no rashes, no lesions, and no evidence of cellulitis. MS/ Extremity: Pulses equal, no cyanosis. Neurovascular intact. Full, normal range of motion. Neuro: Awake and alert, GCS 15, oriented to person, place, time, and situation. Cranial nerves II-XII grossly intact. Motor strength 5/5 in all extremities. Sensory grossly intact. Psych: Awake, alert, with orientation to person, place and time. Behavior, mood, and affect are within normal limits Vital Signs: 04/23 21:41 BP 174 / 123; Pulse 91; Resp 18; Temp 98.5; Pulse Ox 98% on R/A; Weight 74.84 kg; pf1 Height 5 ft. 9 in. ; Pain 0/10; 04/24 00:29 BP 161 / 121; Pulse 83; Resp 16; Pulse Ox 94% on R/A; jb4 01:00 BP 171 / 130; Pulse 80; Resp 16 S; Pulse Ox 98% on R/A; km8 01:30 BP 164 / 126; Pulse 65; Resp 16; Pulse Ox 97% on R/A; km8 04/23 21:41 Body Mass Index 24.37 (74.84 kg, 175.26 cm) pf1 04/23 21:41 Pain Scale: Adult pf1 MDM: 04/23 21:39 Patient medically screened. sp4 23:57 ED course: Chest X ray - TECHNIQUE: 2 views: PA and lateral chest radiograph(s). sp4 FINDINGS: The lungs are clear. No pulmonary infiltrate or edema identified. No pleural effusion. No pneumothorax. Nonenlarged cardiomediastinal silhouette. No significant osseous abnormality. IMPRESSION: No acute cardiopulmonary abnormality identified by radiograph.. 04/24 00:33 ED course: Chest X ray - TECHNIQUE: 2 views: PA and lateral chest radiograph(s). sp4 FINDINGS: The lungs are clear. No pulmonary infiltrate or edema identified. No pleural effusion. No pneumothorax. Nonenlarged cardiomediastinal silhouette. No significant osseous abnormality. IMPRESSION: No acute cardiopulmonary abnormality identified by radiograph.. 00:37 Differential Diagnosis: Bronchitis Influenza Upper Respiratory Infection Sinusitis sp4 Pharyngitis Otitis Media Allergic Rhinitis. Data reviewed: vital signs, nurses notes, old medical records, lab test result(s), radiologic studies, plain films. Consideration of Admission/Observation Escalation of care including admission/observation considered. ED course: Patient has clear chest x-ray and unremarkable workup. Will provide medications for acute bronchitis plus cough suppressant. Zithromax once a day for 5 days. Otherwise stable for discharge home. . 04/23 21:38 Order name: COVID-19/FLU A+B; Complete Time: 00:32 sp4 04/23 22:12 Order name: Basic Metabolic Panel; Complete Time: 00:32 sp4 04/23 22:12 Order name: CBC with Diff; Complete Time: 23:56 sp4 04/23 22:12 Order name: LFT's; Complete Time: 00:32 sp4 04/23 22:13 Order name: Strep 4 04/24 02:01 Order name: Throat Culture EDIL 04/23 22:13 Order name: Chest Pa And Lat (2 Views) XRAY 4 04/23 22:12 Order name: IV Saline Lock; Complete Time: 23:54 4 04/23 22:12 Order name: Labs collected and sent; Complete Time: 23:54 sp4 04/23 22:12 Order name: O2 Per Protocol; Complete Time: 23:54 sp4 04/23 22:12 Order name: O2 Sat Monitoring; Complete Time: 23:54 sp4 Administered Medications: 04/23 23:17 Drug: Acetaminophen-Codeine PO (300 mg-30 mg) 2 tabs PO once; RASS on ADMIN: Combtv4, jb4 Very Agttd3, Agttd2, Rstlss1, AlertClm0, Drwsy-1, Lt Sdtn-2, Mod Sdtn-3, Dp Sdtn-4, UnArsble-5 Route: PO; 04/24 01:47 Follow up: Response: No adverse reaction [facility] 04/23 23:17 Drug: Promethazine PO 25 mg PO once Route: PO; [facility] 04/24 01:47 Follow up: Response: No adverse reaction [facility] 04/23 23:42 Drug: Ketorolac IVP 30 mg IVP once Route: IVP; Site: left antecubital; [facility] 04/24 01:47 Follow up: Response: No adverse reaction 8 01:13 Drug: predniSONE PO 60 mg PO once Route: PO; 01:46 Follow up: Response: No adverse reaction 8 01:13 Drug: cloNIDine PO 0.2 mg PO once Route: PO; 01:46 Follow up: Response: No adverse reaction 8 01:18 Drug: Rocephin (cefTRIAXone) IM 1 grams IM once Route: IM; Site: right gluteus; 01:47 Follow up: Response: No adverse reaction 01:46 Drug: Losartan-Hydrochlorothiazide PO 100 mg-25 mg 1 tablet PO once Route: PO; 01:46 Follow up: Response: Medication administered at discharge. km8 Disposition Summary: 04/24/23 00:47 Discharge Ordered Problem: new sp4 Symptoms: have improved sp4 Condition: Stable sp4 Diagnosis - Essential (primary) hypertension sp4 - Acute bronchitis, unspecified sp4 - Acute pleuritic chest pain, acute pharyngitis, acute bacterial bronchitis, sp4 uncontrolled hypertension Followup: sp4 - With: Soto, Cabrera, DO - When: 7 - 10 days - Reason: Recheck today's complaints Discharge Instructions: - Discharge Summary Sheet sp4 - Hypertension, Adult sp4 Forms: - Patient Portal Instructions sp4 Prescriptions: - dextromethorphan-guaifenesin 30-600 mg Oral Tablet, Extended Release 12 hr - take 1 tablet ORAL route every 8 hours as needed for cough; 30 tablet; Refills: sp4 0, Product Selection Permitted - losartan-hydrochlorothiazide 100-25 mg Oral tablet - take 1 tablet ORAL route daily; 90 tablet; Refills: 0, Product Selection sp4 Permitted - Ibuprofen 600 mg Oral Tablet - take 1 tablet ORAL route every 6 hours As needed take with food; 30 tablet; sp4 Refills: 0, Product Selection Permitted - Nexium 20 mg Oral capsule,delayed release (e.c.) - take 1 capsule ORAL route once daily; 30 capsule; Refills: 0, Product Selection sp4 Permitted - Zithromax Z-Solitario 250 mg Oral Tablet - take 1 tablet ORAL route as directed for 5 days Day 1 - take two (2) tablets sp4 one time. Day 2, 3, 4 , 5 take one (1) tablet once daily.; 6 tablet; Refills: 0, Product Selection Permitted - promethazine 25 mg Oral tablet - take 1 tablet ORAL route every 6 hours As needed PRN nausea; 30 tablet; sp4 Refills: 0, Product Selection Permitted Signatures: Dispatcher [employer] Peter Carter, RN RN jb4 Sania Mckee RN RN pf1 Jordon Brandt MD MD sp4 Shira Donato RN RN km8 Corrections: (The following items were deleted from the chart) 04/23 21:49 21:48 PSHx: left shoulder (Tummy tuck); pf1 pf1 04/24 00:54 00:47 Other secondary hypertension sp4 sp4
--- NOTE | 2023-04-24 00:47 | ER ---
Nurse's Notes [facility] Name: Brii Jackson Age: 42 yrs Sex: Female : 1980 Arrival Date: 04/23/2023 Time: 20:55 Bed 19 Private MD: Diagnosis: Essential (primary) hypertension;Acute bronchitis, unspecified;Acute pleuritic chest pain, acute pharyngitis, acute bacterial bronchitis, uncontrolled hypertension Presentation: 04/23 21:41 Chief complaint: Patient states: cough,congestion and intermittent SOB when pf1 coughing,onset 6 days. Patient C/O right lower ribcage pain of 10 when coughing. Coronavirus screen: Vaccine status: Patient reports being unvaccinated. Client denies travel out of the [place] in the last 14 days. Client presents with at least one sign or symptom that may indicate coronavirus-19. Ebola Screen: Patient negative for fever greater than or equal to 101.5 degrees Fahrenheit, and additional compatible Ebola Virus Disease symptoms. Resp Distress? No respiratory distress is noted at this time. Initial Sepsis Screen: Does the patient meet any 2 criteria? HR > 90 bpm. No. Patient's initial sepsis screen is negative. Does the patient have a suspected source of infection? No. Patient's initial sepsis screen is negative. Risk Assessment: Do you want to hurt yourself or someone else? Patient reports no desire to harm self or others. 21:41 Method Of Arrival: Ambulatory pf1 21:41 Acuity: CLARIBEL 3 pf1 Historical: - Allergies: 21:48 No Known Allergies; pf1 - PMHx: 21:48 chronic back pain; Anxiety; Depression; GERD; Hypertension; pf1 - PSHx: 21:48 back sx; breast augmentation; gastric sleeve; hysterectomy; Tummy tuck; pf1 21:48 left shoulder; pf1 - Immunization history:: Adult Immunizations up to date, Client reports having NOT received the Covid vaccine. Last tetanus immunization: < 5 years ago Flu vaccine is not up to date. - Social history:: Smoking status: Patient reports the use of cigarette tobacco products, smokes one pack cigarettes per day. Patient uses alcohol, occasionally. Patient/guardian denies using street drugs. - Family history:: not pertinent. Assessment: 23:15 General: Appears in no apparent distress. uncomfortable, Behavior is calm, cooperative, jb4 appropriate for age. Pain: Complains of pain in right ribs Pain does not radiate. Pain currently is 10 out of 10 on a pain scale. Neuro: Level of Consciousness is awake, alert, obeys commands, Oriented to person, place, time, situation. Cardiovascular: Patient's skin is warm and dry. Respiratory: Airway is patent Respiratory effort is even, unlabored, Respiratory pattern is regular, symmetrical. GI: No signs and/or symptoms were reported involving the gastrointestinal system. : No signs and/or symptoms were reported regarding the genitourinary system. EENT: No signs and/or symptoms were reported regarding the EENT system. Derm: Skin is intact, Skin is pink, warm \T\ dry. Musculoskeletal: Circulation, motion, and sensation intact. Range of motion: intact in all extremities. 04/24 00:29 Reassessment: Patient appears in no apparent distress at this time. No changes from jb4 previously documented assessment. Patient and/or family updated on plan of care and expected duration. Pain level reassessed. Patient is alert, oriented x 3, equal unlabored respirations, skin warm/dry/pink. Vital Signs: 04/23 21:41 BP 174 / 123; Pulse 91; Resp 18; Temp 98.5; Pulse Ox 98% on R/A; Weight 74.84 kg; pf1 Height 5 ft. 9 in. ; Pain 0/10; 04/24 00:29 BP 161 / 121; Pulse 83; Resp 16; Pulse Ox 94% on R/A; jb4 01:00 BP 171 / 130; Pulse 80; Resp 16 S; Pulse Ox 98% on R/A; km8 01:30 BP 164 / 126; Pulse 65; Resp 16; Pulse Ox 97% on R/A; km8 04/23 21:41 Body Mass Index 24.37 (74.84 kg, 175.26 cm) pf1 04/23 21:41 Pain Scale: Adult pf1 ED Course: 04/23 21:01 Patient arrived in ED. gm2 21:38 Jordon Brandt MD is Attending Physician. sp4 21:48 Triage completed. pf1 23:00 Chest Pa And Lat (2 Views) XRAY In Process Unspecified. EDMS 04/24 00:46 Cabrera Valera DO is Referral Physician. sp4 01:48 No provider procedures requiring assistance completed. Patient did not have IV access km8 during this emergency room visit. intact, bleeding controlled, No redness/swelling at site. Pressure dressing applied. 01:49 Provided Education on: d/c teaching. km8 Administered Medications: 04/23 23:17 Drug: Acetaminophen-Codeine PO (300 mg-30 mg) 2 tabs PO once; RASS on ADMIN: Combtv4, jb4 Very Agttd3, Agttd2, Rstlss1, AlertClm0, Drwsy-1, Lt Sdtn-2, Mod Sdtn-3, Dp Sdtn-4, UnArsble-5 Route: PO; 04/24 01:47 Follow up: Response: No adverse reaction 8 04/23 23:17 Drug: Promethazine PO 25 mg PO once Route: PO; jb4 04/24 01:47 Follow up: Response: No adverse reaction 8 04/23 23:42 Drug: Ketorolac IVP 30 mg IVP once Route: IVP; Site: left antecubital; jb4 04/24 01:47 Follow up: Response: No adverse reaction km8 01:13 Drug: predniSONE PO 60 mg PO once Route: PO; jb4 01:46 Follow up: Response: No adverse reaction km8 01:13 Drug: cloNIDine PO 0.2 mg PO once Route: PO; jb4 01:46 Follow up: Response: No adverse reaction km8 01:18 Drug: Rocephin (cefTRIAXone) IM 1 grams IM once Route: IM; Site: right gluteus; jb4 01:47 Follow up: Response: No adverse reaction 8 01:46 Drug: Losartan-Hydrochlorothiazide PO 100 mg-25 mg 1 tablet PO once Route: PO; 8 01:46 Follow up: Response: Medication administered at discharge. km8 Medication: 01:49 VIS not applicable for this client. km8 Outcome: 00:47 Discharge ordered by . sp4 01:49 Discharged to home ambulatory, with significant other, km8 01:49 Condition: good 01:49 Discharge instructions given to patient, significant other, Instructed on discharge instructions, follow up and referral plans. medication usage, Demonstrated understanding of instructions, follow-up care, medications, Prescriptions given X 6 02:06 Patient left the ED. km8 Signatures: Dispatcher [employer] EDPeter Foley RN RN jb4 Sania Mckee RN RN pf1 Jordon Brandt MD MD sp4 Apoorva Webber 2 Shira Donato RN RN km8 Corrections: (The following items were deleted from the chart) 04/23 21:49 21:48 PSHx: left shoulder (Lydia chow); pf1 pf1
[2023-04-24] MEDS ORDERED: CEFTRIAXONE 1000 MG/VIAL ONE (01:00)
[2023-04-24] MEDS ORDERED: predniSONE 10 MG TAB ONE (01:00)
[2023-04-24] MEDS ORDERED: WATER FOR INJ,STERILE 10 ML ONE (01:01)
[2023-04-24] MEDS ORDERED: cloNIDine HCL 0.1 MG TAB ONE (01:05)
[2023-04-24] MEDS ORDERED: LOSARTAN POTASSIUM 50 MG TABLET ONE (01:48)
[2023-04-24] MEDS ORDERED: hydroCHLOROthiazide 25 MG TAB ONE (01:48)
[2023-04-24 02:47] VITALS: TEMP 98.5
[2023-04-24 02:52] VITALS: BP 164/126; O2SAT 97
--- NOTE | 2023-04-24 13:58 | RAD REPORT ---
EXAM DESCRIPTION: 2 views: PA and lateral chest radiograph(s). CLINICAL HISTORY: CHEST PAIN. COMPARISON: None. TECHNIQUE: 2 views: PA and lateral chest radiograph(s). FINDINGS: The lungs are clear. No pulmonary infiltrate or edema identified. No pleural effusion. N o pneumothorax. Nonenlarged cardiomediastinal silhouette. No significant osseous abnormality. IMPRESSION: No acute cardiopulmonary abnormality identified by radiograph. Electronically signed by: Kerrie Richardson MD 04/23/2023 10:59 PM TRACTOR OPERATOR HELPER Due to temporary technical issues with the PACS/Fluency reporting system, reports are being signed by the in house radiologist without review as a courtesy to ensure prompt reporting. The interpreting r adiologist is fully responsible for the content of the report.
== END 2023-04-24 02:06 | disposition home or self-care (01) ==
LOC: ER 20:55
DX: J20.9 Acute bronchitis, unspecified (principal); J02.9 Acute pharyngitis, unspecified; R07.81 Pleurodynia; F41.9 Anxiety disorder, unspecified; K21.9 Gastro-esophageal reflux disease without esophagitis; F32.A Depression, unspecified; I10 Essential (primary) hypertension; F17.210 Nicotine dependence, cigarettes, uncomplicated; Z11.52 Encounter for screening for COVID-19
CPT/HCPCS: 0240U; 36415; 71046; 80048; 80076; 85025; 87070; 87081; 96372; 96374; 99284; J0696; J7512; Q0169